=== PATIENT | female | born 1975 | race Caucasian/White ===

== ENCOUNTER → 2016-05-29 | Outpatient (CLI) | payer BC ==
--- NOTE | 2016-05-29 15:28 | US ---
EXAMINATION TYPE: US pelvic complete DATE OF EXAM: 05/29/2016 2:54 PM COMPARISON: NONE CLINICAL HISTORY: R10.2 Pelvic pain,N92.1 Menorrhagia. Pelvic and back pain, heavy vaginal bleeding TECHNIQUE: Transabdominal (TA) Date of LMP: 04/30/2016 EXAM MEASUREMENTS: Uterus: 12.8 x 4.9 x 6.6 cm Endometrial Stripe: 0.9 cm Right Ovary: 2.5 x 1.5 x 2.4 cm Left Ovary: 3.8 x 1.7 x 2.2 cm TECHNOLOGIST IMPRESSION: wnl 1. Uterus: Anteverted Heterogeneous with 1.3 cm Nabothian cyst in cervix, and possible fibroid ant erior body= 2.4 x 1.6 x 2.1 cm 2. Endometrium: wnl 3. Right Ovary: wnl 4. Left Ovary: wnl 5. Bilateral Adnexa: wnl 6. Posterior cul-de-sac: wnl IMPRESSION: 1. NABOTHIAN CYST IN THE POSTERIOR LIP OF THE CERVIX. 2. MILDLY HETEROGENOUS UTERUS.
[2016-05-29 15:53] LABS: Follicle Stimulating Hormone 2.1 mIU/mL; Prolactin 15.9 ng/mL (3.0-18.6)
== END | disposition home or self-care (01) ==
LOC: RADUSWWP 14:31
PROVIDERS: ATTEND Obstetrics & Gynecology
DX: N88.8 Other specified noninflammatory disorders of cervix uteri (principal); R10.2 Pelvic and perineal pain
CPT/HCPCS: 36415; 76856; 83001; 83002; 84146; 84443

== ENCOUNTER → 2016-07-25 | Outpatient (CLI) | payer BC ==
[2016-07-25 16:24] LABS: Basophils % (A) 1 %; CH 31.4; CHCM 33.1; Eosinophils # (A) 0.2 k/uL (0-0.7); Eosinophils % (A) 2 %; HCT 43.1 % (34.0-46.0); HGB 14.3 gm/dL (11.4-16.0); Luc # (Auto) 0.15; Luc % (Auto) 2; Lymphocytes # (A) 2.3 k/uL (1.0-4.8); Lymphocytes % (A) 26 %; MCH 31.5 pg (25.0-35.0); MCHC 33.1 g/dL (31.0-37.0); MCV 95.2 fL (80.0-100.0); Mean Platelet Volume 7.2; Monocytes # (A) 0.5 k/uL (0-1.0); Monocytes % (A) 6 %; Neutrophils # (A) 5.6 k/uL (1.3-7.7); Neutrophils % (A) 64 %; RBC 4.52 m/uL (3.80-5.40); RDW 13.4 % (11.5-15.5); WBC 8.7 k/uL (3.8-10.6); WBC (Perox) 8.65
[2016-07-25 16:56] LABS: Anion Gap 9 mmol/L; Blood Urea Nitrogen 13 mg/dL (7-17); Calcium 9.6 mg/dL (8.4-10.2); Carbon Dioxide 25 mmol/L (22-30); Chloride 106 mmol/L (98-107); Glucose 87 mg/dL (74-99); Non-African American GFR(MDRD) >60 (>60 ml/min/1.73 sqM); Potassium 4.1 mmol/L (3.5-5.1); Sodium 140 mmol/L (137-145)
== END | disposition home or self-care (01) ==
LOC: LABPAT 15:58
PROVIDERS: ATTEND Obstetrics & Gynecology
DX: Z01.812 Encounter for preprocedural laboratory examination (principal)
CPT/HCPCS: 80048; 85025; 86850; 86900; 86901

== ENCOUNTER 2016-07-31 05:48 | Observation (INO) | payer BC ==
[2016-07-28 11:29] VITALS: BMI 36.2
[~2016-07-31 05:48] MED LIST: DEXAMETHASONE SOD PHOSPHATE 10 MG/ML 1 ML VIAL IV ONE; MIDAZOLAM 2 MG/2 ML VIAL IV PRN; ONDANSETRON 4 MG/2 ML VIAL IVP ONE; ceFAZolin 2 GM in SODIUM CHLORIDE 0.9% 100 ML IVPB ONE
[2016-07-31] MEDS ORDERED: SCOPOLAMINE 1.5MG/72HR PATCH TRANSDERM ONE (07:00)
[2016-07-31] MEDS ORDERED: LIDOCAINE 1% 20 ML VIAL (10MG/ML) FOR IV START INTRADERMA ONE ×2 (07:00)
[2016-07-31] MEDS: LACTATED RINGERS 1,000 ML IV SCH ×3 (07:00→18:13)
--- NOTE | 2016-07-31 07:34 | P.HPOB ---
History of Present Illness H&P Date: 07/31/16 Chief Complaint: Menorrhagia and fibroid uterus Betty is a 41-year-old female with a grossly enlarged 13 cm uterus. She reports having very heavy vaginal bleeding for up to 7 days a cycle but for the first 3-4 days she seems to be able to not get in and out of bed due to the heaviness of the bleeding and severe pain. She cannot function at this time she requesting permanent treatment. S uterus. 12 cm it is unlikely NovaSure wouldn't work therefore she is scheduled for a robotic-assisted left laparoscopic hysterectomy. NADINE possible BSO. Risks/benefits/alternatives reviewed with patient in detail and all questions were answered for her prior to proceeding to the operating room risks benefits to include but were not limited to damage to bladder, bowel, vascular injuries, nerve injury, ureteral damage. On physical exam vital signs are stable and afebrile. Heart regular, lungs clear, extremities without pain. This is in obese female whose HEENT is otherwise unremarkable as well. Pelvic exam is somewhat limited due to size but a grossly instructed large uterus is palpated. Past Medical History Past Medical History: Musculoskeletal Disorder Additional Past Medical History / Comment(s): ENVIRONMENTAL ALLERGIES, RLS, DDD WITH LOWER BACK & NECK PAIN., STATES PAIN ALSO LEFT HIP.,MENORRHAGIA., CARPAL TUNNEL SYNDROME LEFT WRIST. History of Any Multi-Drug Resistant Organisms: None Reported Past Surgical History: Orthopedic Surgery, Tubal Ligation Additional Past Surgical History / Comment(s): right arm Past Anesthesia/Blood Transfusion Reactions: Motion Sickness, Postoperative Nausea & Vomiting (PONV) Past Psychological History: ADD/ADHD, Anxiety, Depression Smoking Status: Never smoker Past Alcohol Use History: Occasional Past Drug Use History: None Reported - Past Family History Mother Family Medical History: Cancer Additional Family Medical History / Comment(s): LUNG CANCER Father Family Medical History: Cancer Medications and Allergies Home Medications Medication Instructions Recorded Confirmed Type Dextroamphetamine/Amphetamine 30 mg PO BID 05/30/14 07/28/16 History [Adderall] HYDROcodone/APAP 10-325MG [[place] 1 tab PO Q8HR PRN 03/05/15 07/28/16 History 10-325] ALPRAZolam [Xanax] 0.5 mg PO BID PRN 07/28/16 07/28/16 History Budesonide-Formot 160-4.5 Mcg 2 puff INHALATION BID 07/28/16 07/28/16 History [Symbicort 160-4.5 Mcg Inhaler] rOPINIRole HCL [Requip] 1 mg PO HS PRN 07/28/16 07/28/16 History Allergies Allergy/AdvReac Type Severity Reaction Status Date / Time shellfish derived AdvReac Swelling Verified 07/31/16 06:16 Exam Osteopathic Statement: *. No significant issues noted on an osteopathic structural exam other than those noted in the History and Physical/Consult. - Vital Signs Vital signs: Vital Signs Temp Pulse Resp BP Pulse Ox 07/31/16 07:00 98.5 F 76 16 135/78 96 - OBG Physical Exam Breast: both: normal (no masses) Abdomen: bowel sounds normal, no diffuse tenderness, no bruit present, no guarding noted, no hepatomegaly, no splenomegaly, no mass Vulva: both: normal Vagina: normal moisture, no discharge Cervix: no lesion, no discharge Uterus: enlarged, nodular Adnexa: both: normal
[2016-07-31] MEDS ORDERED: HYDROmorphone (PF) 1 MG/ML ONE (07:36)
[2016-07-31] MEDS ORDERED: fentaNYL (PF) 50 MCG/ML 2 ML AMP ONE (07:36)
[2016-07-31] MEDS ORDERED: ROCURONIUM BROMIDE 10 MG/ML 10 ML VIAL IV ONE (07:36)
[2016-07-31] MEDS ORDERED: PROPOFOL 10 MG/ML 20 ML VIAL IV ONE (07:36)
[2016-07-31] MEDS ORDERED: SUCCINYLCHOLINE CHLORIDE 100 MG/5 ML SYR IV ONE (07:36)
[2016-07-31] MEDS ORDERED: MIDAZOLAM 2 MG/2 ML VIAL ONE (07:36)
[2016-07-31] MEDS ORDERED: LIDOCAINE 1% INJ 10MG/ML (20 ML MDV) ONE (07:36)
[2016-07-31] MEDS ORDERED: BUPIVACAINE (PF) 0.25% 30 ML VIAL SQ ONE ×2 (08:20)
[2016-07-31] MEDS ORDERED: SIMETHICONE 80 MG CHEWABLE PO PRN (09:48)
[2016-07-31] MEDS ORDERED: diphenhydrAMINE 50 MG/ML 1 ML VIAL IVP PRN (09:48)
[2016-07-31] MEDS ORDERED: Acetaminophen-Codeine 300-30mg TAB PO PRN ×2 (09:48)
[2016-07-31] MEDS ORDERED: ONDANSETRON 4 MG/2 ML VIAL IVP PRN (09:48)
--- NOTE | 2016-07-31 10:01 | P.OP ---
Date of Procedure: 07/31/16 Preoperative Diagnosis: menorrhagia: fibroid uterus Postoperative Diagnosis: same with adhesions Procedure(s) Performed: Robotic-assisted laparoscopic hysterectomy with bilateral salpingectomy with lysis of adhesions Anesthesia: CRISTAL Surgeon: Rainer Reynoso [employer] Stitcher #1: Lisandra Rao Estimated Blood Loss (ml): 300 IV fluids (ml): 1,200 Urine output (ml): 75 Pathology: other (Risks with bilateral fallopian tubes) Condition: stable Disposition: floor Operative Findings: Adhesions of the bowel to the posterior cul-de-sac otherwise grossly enlarged fibroid uterus Description of Procedure: Patient was taken to the operating suite where a general anesthetic was found be adequate. She was prepped and draped in the normal sterile fashion and placed in the dorsal lithotomy position. Initially a weighted speculum was inserted into the vagina and the anterior lip of cervix was identified and grasped with a single-tooth tenaculum. Cervix was then dilated and sounded to 12 cm and the cup size was measured to 3 cm. Suture was placed at 3 and 9 hands clock position and the Harriet manipulator was inserted. Cross catheter was then placed and gloves were changed. Attention was then turned to the abdominal portion procedure where approximately 2 mL of quarter percent Marcaine were injected approximate 3 cm above the umbilicus. Through this injected anesthetic a 5 mm skin incision was made and through this incision under direct visualization with an optical trocar and sleeve the camera was inserted. Once peritoneal placement was assured gas was allowed to fully insufflate the abdomen and the patient was placed in a very steep Trendelenburg position. Once this was accomplished, 8 mm skin incisions were made 10 cm lateral to the umbilicus bilaterally and through these da Carmel ports and sleeves were inserted. A fourth port and sleeve was then inserted between the left lateral and the medial port 31 cm incision. Once all ports were placed the initial camera port was exchanged for a da Carmel port and the laparoscopic equipment was removed from the operative field. Robot was then brought in and docked in once docked using a scissor and the one arm and a [place] grasper in the 2 arm I did break scrub and go to the console. Uterus was then elevated and tipped to the right-hand side, cautery of the utero-ovarian ligament was then performed cauterizing it and then cutting it through the broad ligament tissues the tissue was cauterized and cut all the way to the round ligament. Round blade was then cauterized and cut transected and anterior posterior leafs of the broad ligament were developed. Skeletonization vascular moving inferiorly along the lateral border of the uterus was then done. Once to the level of the bladder flap tissue was undermined with [place] and incised with the scissors. This opening was then extended across the face of the uterus with the bladder could be dissected out of the operative field. Once this was accomplished right side of the uterus was developed in a similar fashion. During this process it was noted during anteversion that there was adhesions that were filmy between the bowel and the posterior cul-de-sac and posterior uterine wall these were lysed bluntly and sharply to allow full exposure of the posterior cul-de-sac. Once all this was completed uterus was retroverted cup was identified through the vagina and tissue was incised creating an anterior colpotomy. Once completed following the cup around in a counterclockwise fashion cheating ahead by cauterizing vascularity and needed. This was done to help maintain hemostasis. We did then follow the couple all the way around 3 and 60 once uterus and cervix were from the vaginal mucosa the uterus was brought into the vagina to maintain pneumoperitoneum area pelvis was then irrigated and any small bleeders on the vaginal cuff were cauterized. Instruments were then exchanged for a Alcon grasper and a make suture cut. Cuff was then closed in running fashion with 20 the lock suture. Once closed uterus was brought out of the vagina and pneumoperitoneum was noted to be maintained. One pull inspection of the pelvis at this point seeing no bleeding the right fallopian tube did have what appeared to be endometriosis on it and some discoloration therefore it was elevated incidents were again exchanged for [place] grasper and scissor and cauterizing across the tube tube was excised in a similar fashion the left tube was excised. This tissue was then sent to pathology for evaluation. Once all this was a constant accomplished all of the instruments were removed from the abdomen and gas was allowed to expel from the abdomen. 5 deep breaths were provided during this process. 4-0 Vicryl was then used to close these incisions subcuticularly. Concurrently I did do a cystoscopy and good flow was noted from both ureteral jets. It was noted there was a significant amount of debris within the latter suspicious for UTI. Therefore we will have her take antibiotics over the next several days. Sponge , lap, needle counts were then all correct 2 and patient was taken to the recovery room in stable and satisfactory condition.
[2016-07-31] MEDS: HYDROmorphone 1 MG/ML 1 ML SYRINGE IVP PRN ×4 (10:30→11:04)
[2016-07-31] MEDS ORDERED: ONDANSETRON 4 MG/2 ML VIAL IVP ONE (10:35)
[2016-07-31] MEDS ORDERED: KETOROLAC 30 MG/ML 1 ML VIAL IVP ONE (10:35)
[2016-07-31] MEDS ORDERED: HYDROcodone/APAP 10-325MG 1 EACH TAB PO PRN (12:46)
[2016-07-31] MEDS ORDERED: HYDROmorphone 1 MG/ML 1 ML SYRINGE IVP STA (12:50)
[2016-07-31] MEDS: KETOROLAC 30 MG/ML 1 ML VIAL IVP PRN ×2 (15:58→22:16)
[2016-07-31] MEDS: ALPRAZolam 0.5 MG TAB PO PRN ×2 (16:35→22:18)
[2016-07-31] MEDS: CEPHALEXIN 500 MG CAP PO SCH ×2 (16:35→21:05)
[2016-07-31] MEDS: HYDROcodone/APAP 10-325MG 1 EACH TAB PO PRN ×2 (18:25→22:18)
[2016-07-31] MEDS: SENNOSIDES-DOCUSATE SODIUM 1 EACH TAB PO SCH (21:05)
[2016-08-01] MEDS: CEPHALEXIN 500 MG CAP PO SCH ×5 (02:18→21:34)
[2016-08-01] MEDS: HYDROcodone/APAP 10-325MG 1 EACH TAB PO PRN ×5 (02:18→21:55)
[2016-08-01] MEDS: LACTATED RINGERS 1,000 ML IV SCH ×2 (02:31→22:48)
[2016-08-01 06:46] LABS: Basophils % (A) 0 %; CH 32.1; Eosinophils # (A) 0.1 k/uL (0-0.7); Eosinophils % (A) 1 %; HCT 31.2 % (34.0-46.0); HGB 10.8 gm/dL (11.4-16.0); Luc # (Auto) 0.19; Luc % (Auto) 2; Lymphocytes # (A) 1.9 k/uL (1.0-4.8); Lymphocytes % (A) 21 %; MCH 32.8 pg (25.0-35.0); MCHC 34.7 g/dL (31.0-37.0); MCV 94.6 fL (80.0-100.0); Monocytes # (A) 0.6 k/uL (0-1.0); Monocytes % (A) 6 %; Neutrophils # (A) 6.6 k/uL (1.3-7.7); Neutrophils % (A) 71 %; RDW 13.5 % (11.5-15.5); WBC 9.3 k/uL (3.8-10.6); WBC (Perox) 9.99
[2016-08-01] MEDS: SENNOSIDES-DOCUSATE SODIUM 1 EACH TAB PO SCH ×2 (07:50→21:34)
[2016-08-01] MEDS: KETOROLAC 30 MG/ML 1 ML VIAL IVP PRN ×2 (09:19→17:23)
[2016-08-01] MEDS: ALPRAZolam 0.5 MG TAB PO PRN ×2 (09:34→21:58)
--- NOTE | 2016-08-01 16:16 | P.PN ---
Progress Note - Text Betty is seen and evaluated. I've seen her on 2 separate occasions today plus discussed her care with nursing this morning. She is able to ambulate and she is tolerating her diet. However she is not passing flatus and reports that her pain is still relatively significant. In evaluating her bedside however she does not appear to be into much pain. She is laying comfortably in bed. That said she is unable to get her Tri-flow a past about 500 and with her size and condition I'm concerned that she is at risk for pneumonia or DVT will therefore be more aggressive tonight and tomorrow and try and get her home tomorrow. All the questions are answered for her at this time. Vital signs are stable and she is afebrile. Heart regular, lungs clear, extremities without pain. Abdomen is soft incisions are intact there is mild distention secondary to gas in her abdomen. Assessment postop day 1. Plan continue current care with expectation for discharge in the morning.
[2016-08-02] MEDS: KETOROLAC 30 MG/ML 1 ML VIAL IVP PRN ×2 (00:01→07:59)
[2016-08-02] MEDS: HYDROcodone/APAP 10-325MG 1 EACH TAB PO PRN ×3 (02:18→10:56)
[2016-08-02 07:54] VITALS: BP 98/62; PULSE 64; RESP 19; TEMP 97.9
[2016-08-02] MEDS: SENNOSIDES-DOCUSATE SODIUM 1 EACH TAB PO SCH (07:55)
[2016-08-02] MEDS: CEPHALEXIN 500 MG CAP PO SCH (07:56)
[2016-08-02] MEDS: ALPRAZolam 0.5 MG TAB PO PRN (09:34)
--- NOTE | 2016-08-02 10:37 | P.DS ---
Providers Date of admission: 08/01/16 01:24 Expected date of discharge: 08/02/16 Attending physician: Rainer Reynoso Primary care physician: Stated None Hospital Course: Overall height is doing well. She is ambulating, voiding and she is tolerating her diet. She voices complaining of some pain but otherwise is doing well. She is encouraged to ambulate more as it seems that she has not been very motivated yet to ambulate. She also has not been motivated to do her Tri-flow as much as we would like. I reiterated as has nursing also reiterated that she needs to ambulate every hour all she's awake making sure that she gets up and moves around to keep her from having risk of DVT. She is also reminded that she needs to use her Tri-flow every hour while she is awake trying her best to get as high of number versus possible as we do not want her to be at risk for pneumonia. Otherwise she is stable at this time and will plan discharged home today. Prescriptions for pain relievers have been provided. She is aware to have no heavy lifting limited stairs and driving as well as pelvic rest. If she has any high temperatures, heavy bleeding, or severe pain she will notify our office or go to the emergency room. All of the questions are answered for her at this time. Her heart is regular, lungs are clear, extremities without pain. And edges her on incisions appeared clean dry and intact. Assessment postop day 2. Plan discharged home follow up with me in 1 week. Patient Condition at Discharge: Good Plan - Discharge Summary New Discharge Prescriptions: HYDROcodone/APAP 10-325MG [[place] 10-325] 1 tab PO Q6H PRN #30 tab PRN Reason: Pain Ibuprofen [Motrin] 600 mg PO Q6HR PRN #30 tab PRN Reason: Pain Discharge Medication List Dextroamphetamine/Amphetamine [Adderall] 30 mg PO BID 05/30/14 [History] HYDROcodone/APAP 10-325MG [[place] 10-325] 1 tab PO Q8HR PRN 03/05/15 [History] ALPRAZolam [Xanax] 0.5 mg PO BID PRN 07/28/16 [History] Budesonide-Formot 160-4.5 Mcg [Symbicort 160-4.5 Mcg Inhaler] 2 puff INHALATION RT-BID 07/28/16 [History] rOPINIRole HCL [Requip] 1 mg PO HS PRN 07/28/16 [History] HYDROcodone/APAP 10-325MG [[place] 10-325] 1 tab PO Q6H PRN #30 tab 08/01/16 [Rx] Ibuprofen [Motrin] 600 mg PO Q6HR PRN #30 tab 08/01/16 [Rx] Follow up Appointment(s)/Referral(s): Rainer Reynoso DO [Doctor of Osteopathic Medicine] - 1 Week Patient Instructions/Handouts: Laparoscopic Hysterectomy (DC), Laparoscopic Hysterectomy (GEN) Activity/Diet/Wound Care/Special Instructions: DISCHARGE HOME TODAY, FOLLOW UP IN ONE WEEK, SOONER IF PROBLEMS OR CONCERNS..IE FEVER, CHILLS, PAIN W/URINATION, REDNESS OR FOUL DRAINAGE FROM INCISION SITES. PAIN NOT CONTROLLED BY MEDICATIONS, INABILITY TO KEEP DOWN FLUIDS/FOODS, SWELLING OR PAIN OF LOWER EXTREMITIES.DAILY SHOWER AND PAT INCISIONS DRY. NO TUB BATHS, SWIMMING POOLS, OR HOT TUBS. NO HEAVY LIFTING, PUSHING, OR PULLING. NOTHING IN VAGINA FOR 8 WEEKS. CONTINUE TO USE INCENTIVE SPIROMETRY AND MOVE AROUND HOUSE W/REST PERIODS.
== END 2016-08-02 11:43 | disposition home or self-care (01) ==
LOC: OR 05:48 → 6PED 09:59 → OR 08-01 01:24
PROVIDERS: ADMIT Obstetrics & Gynecology; ATTEND Obstetrics & Gynecology
DX: D25.1 Intramural leiomyoma of uterus (principal); N92.0 Excessive and frequent menstruation with regular cycle; G25.81 Restless legs syndrome; F32.9 Major depressive disorder, single episode, unspecified; F41.9 Anxiety disorder, unspecified; F90.9 Attention-deficit hyperactivity disorder, unspecified type; J30.1 Allergic rhinitis due to pollen; Z79.51 Long term (current) use of inhaled steroids; Z79.899 Other long term (current) drug therapy; Z91.013 Allergy to seafood
CPT/HCPCS: 58571; 94760; 81025; 88305; 85025; 88307; G0378 ×2; J2250; J1100; J0690; J2405; J2001; J3010; J1885 ×3; J1170; J0330; J2704; 86850; 86900; 86901; 88302; 96374; 96376

== ENCOUNTER 2016-11-04 10:39 | Emergency (ER) | payer BC ==
[2016-11-04] MEDS ORDERED: DEXAMETHASONE 4 MG TAB PO STA (11:26)
[2016-11-04] MEDS ORDERED: IPRATROPIUM-ALBUTEROL 3 ML NEB INHALATION STA (11:26)
--- NOTE | 2016-11-04 11:47 | XR ---
EXAMINATION TYPE: XR chest 2V DATE OF EXAM: 11/04/2016 COMPARISON: Prior chest x-ray 05/30/2014 HISTORY: Rule out pneumonia, cough and congestion TECHNIQUE: Frontal and lateral views of the chest are obtained. FINDINGS: There is no focal air space opacity, pleural effusion, or pneumothorax seen. The cardiac silhouette size is within normal limits. The osseous structures are intact. IMPRESSION: No acute cardiopulmonary process.
[2016-11-04 12:14] LABS: Basophils % (A) 1 %; CH 31.4; CHCM 33.9; Eosinophils # (A) 0.2 k/uL (0-0.7); Eosinophils % (A) 3 %; HCT 42.8 % (34.0-46.0); HDW 2.44; HGB 14.2 gm/dL (11.4-16.0); Luc # (Auto) 0.12; Luc % (Auto) 2; Lymphocytes # (A) 1.1 k/uL (1.0-4.8); Lymphocytes % (A) 21 %; MCH 30.9 pg (25.0-35.0); MCHC 33.3 g/dL (31.0-37.0); Mean Platelet Volume 7.7; Monocytes # (A) 0.4 k/uL (0-1.0); Monocytes % (A) 7 %; Neutrophils # (A) 3.6 k/uL (1.3-7.7); Neutrophils % (A) 67 %; RDW 13.7 % (11.5-15.5); WBC 5.5 k/uL (3.8-10.6); WBC (Perox) 5.27
[2016-11-04 12:23] LABS: Anion Gap 12 mmol/L; Blood Urea Nitrogen 10 mg/dL (7-17); Calcium 9.2 mg/dL (8.4-10.2); Carbon Dioxide 20 mmol/L (22-30); Chloride 106 mmol/L (98-107); Glucose 101 mg/dL (74-99); Non-African American GFR(MDRD) >60 (>60 ml/min/1.73 sqM); Potassium 4.2 mmol/L (3.5-5.1); Sodium 138 mmol/L (137-145)
[2016-11-04 14:18] VITALS: RESP 18
--- NOTE | 2016-11-04 14:56 | ED ---
URI HPI - General Chief Complaint: Upper Respiratory Infection Stated Complaint: URI Time Seen by Provider: 11/04/16 11:03 Source: patient Mode of arrival: ambulatory Limitations: no limitations - History of Present Illness Initial Comments: 1 years old female presents with a cough for the last 4 days denies any fever no chills complaining about pain worse with deep breaths she denies any tobacco use. History of asthma. Takes no neck stiffness no signs of meningitis no chest pain no abdominal pain no frequency urgency dysuria - Related Data Home Medications Medication Instructions Recorded Confirmed Dextroamphetamine/Amphetamine 60 mg PO DAILY 05/30/14 11/04/16 [Adderall] HYDROcodone/APAP 10-325MG [[place] 1 tab PO Q8HR PRN 03/05/15 11/04/16 10-325] ALPRAZolam [Xanax] 0.5 mg PO BID PRN 07/28/16 11/04/16 rOPINIRole HCL [Requip] 1 mg PO HS PRN 07/28/16 11/04/16 Previous Rx's Medication Instructions Recorded Clarithromycin [Biaxin] 500 mg PO Q12HR #20 tablet 11/04/16 Allergies Allergy/AdvReac Type Severity Reaction Status Date / Time shellfish derived AdvReac Swelling Verified 11/04/16 11:21 steri strips AdvReac Rash/Hives Uncoded 11/04/16 10:42 Review of Systems ROS Statement: Those systems with pertinent positive or pertinent negative responses have been documented in the HPI. ROS Other: All systems not noted in ROS Statement are negative. Past Medical History Past Medical History: Musculoskeletal Disorder Additional Past Medical History / Comment(s): ENVIRONMENTAL ALLERGIES, RLS, DDD WITH LOWER BACK & NECK PAIN., STATES PAIN ALSO LEFT HIP.,MENORRHAGIA., CARPAL TUNNEL SYNDROME LEFT WRIST. History of Any Multi-Drug Resistant Organisms: None Reported Past Surgical History: Orthopedic Surgery, Tubal Ligation Additional Past Surgical History / Comment(s): right arm Past Anesthesia/Blood Transfusion Reactions: Motion Sickness, Postoperative Nausea & Vomiting (PONV) Past Psychological History: ADD/ADHD, Anxiety, Depression Smoking Status: Never smoker Past Alcohol Use History: Occasional Past Drug Use History: None Reported - Past Family History Mother Family Medical History: Cancer Additional Family Medical History / Comment(s): LUNG CANCER Father Family Medical History: Cancer General Exam - General Exam Comments Initial Comments: General: The patient is awake and alert, in no distress, and does not appear acutely ill. Skin: Skin is warm and dry and no rashes or lesions are noted. Eye: Pupils are equal, round and reactive to light, extra-ocular movements are intact; there is normal conjunctiva bilaterally. Ears, nose, mouth and throat: There are moist mucous membranes and no oral lesions. Neck: The neck is supple, there is no tenderness or JVD. Cardiovascular: There is a regular rate and rhythm. No murmur, rub or gallop is appreciated. Respiratory: To auscultation bilateral, no wheezing no rhonchi no distress respiratory tilley noticed Gastrointestinal: Soft, non-distended, non-tender abdomen without masses or organomegaly noted. There is no rebound or guarding present. Bowel sounds are unremarkable. Back: There is no tenderness to palpation in the midline. There is no obvious deformity. Musculoskeletal: Normal ROM, no tenderness, There is no pedal edema. There is no calf tenderness or swelling. No cords were appreciated. Neurological: CN II-XII intact, Cranial nerves III through XII are intact. There are no obvious motor or sensory deficits. Coordination appears grossly intact. Speech is normal. Psychiatric: Cooperative, appropriate mood & affect, normal judgment. Limitations: no limitations Course Vital Signs 11/04/16 11/04/16 11/04/16 10:40 11:55 12:00 Temperature 98.7 F Pulse Rate 102 H 90 Respiratory 18 20 Rate Blood Pressure 125/80 O2 Sat by Pulse 98 Oximetry 11/04/16 11/04/16 12:06 12:42 Temperature Pulse Rate 88 90 Respiratory 18 Rate Blood Pressure O2 Sat by Pulse 99 Oximetry She did not complain winded some of some of the workup chest x-ray, d-dimer, CBC , compressive metabolic panel all unremarkable she be gone home with a probable diagnosis of bronchitis on Biaxin 500 mg twice daily for next 10 days Medical Decision Making - Lab Data Result diagrams: 11/04/16 11:59 11/04/16 11:59 Lab Results 11/04/16 11/04/16 11/04/16 Range/Units 11:59 11:59 11:59 WBC 5.5 (3.8-10.6) k/uL RBC 4.60 (3.80-5.40) m/uL Hgb 14.2 (11.4-16.0) gm/dL Hct 42.8 (34.0-46.0) % MCV 93.0 (80.0-100.0) fL MCH 30.9 (25.0-35.0) pg MCHC 33.3 (31.0-37.0) g/dL RDW 13.7 (11.5-15.5) % Plt Count 250 (150-450) k/uL Neutrophils % 67 % Lymphocytes % 21 % Monocytes % 7 % Eosinophils % 3 % Basophils % 1 % Neutrophils # 3.6 (1.3-7.7) k/uL Lymphocytes # 1.1 (1.0-4.8) k/uL Monocytes # 0.4 (0-1.0) k/uL Eosinophils # 0.2 (0-0.7) k/uL Basophils # 0.0 (0-0.2) k/uL D-Dimer 0.43 (<0.60) mg/L FEU Sodium 138 (137-145) mmol/L Potassium 4.2 (3.5-5.1) mmol/L Chloride 106 (98-107) mmol/L Carbon Dioxide 20 L (22-30) mmol/L Anion Gap 12 mmol/L BUN 10 (7-17) mg/dL Creatinine 0.72 (0.52-1.04) mg/dL Est GFR (MDRD) Af Amer >60 (>60 ml/min/1.73 sqM) Est GFR (MDRD) Non-Af >60 (>60 ml/min/1.73 sqM) Glucose 101 H (74-99) mg/dL Calcium 9.2 (8.4-10.2) mg/dL Influenza Type A RNA (Not Detectd) Influenza Type B (PCR) (Not Detectd) Group A Strep Rapid (Negative) 11/04/16 11/04/16 Range/Units 11:59 11:59 WBC (3.8-10.6) k/uL RBC (3.80-5.40) m/uL Hgb (11.4-16.0) gm/dL Hct (34.0-46.0) % MCV (80.0-100.0) fL MCH (25.0-35.0) pg MCHC (31.0-37.0) g/dL RDW (11.5-15.5) % Plt Count (150-450) k/uL Neutrophils % % Lymphocytes % % Monocytes % % Eosinophils % % Basophils % % Neutrophils # (1.3-7.7) k/uL Lymphocytes # (1.0-4.8) k/uL Monocytes # (0-1.0) k/uL Eosinophils # (0-0.7) k/uL Basophils # (0-0.2) k/uL D-Dimer (<0.60) mg/L FEU Sodium (137-145) mmol/L Potassium (3.5-5.1) mmol/L Chloride (98-107) mmol/L Carbon Dioxide (22-30) mmol/L Anion Gap mmol/L BUN (7-17) mg/dL Creatinine (0.52-1.04) mg/dL Est GFR (MDRD) Af Amer (>60 ml/min/1.73 sqM) Est GFR (MDRD) Non-Af (>60 ml/min/1.73 sqM) Glucose (74-99) mg/dL Calcium (8.4-10.2) mg/dL Influenza Type A RNA Not Detected (Not Detectd) Influenza Type B (PCR) Not Detected (Not Detectd) Group A Strep Rapid Negative (Negative) Disposition Clinical Impression: Bronchitis Disposition: HOME SELF-CARE Condition: Good Prescriptions: Clarithromycin [Biaxin] 500 mg PO Q12HR #20 tablet Referrals: Romulo Ge MD [Primary Care Provider] - 1-2 days
[2016-11-04 15:04] VITALS: BP 137/75; PULSE 72; TEMP 98.1
== END 2016-11-04 15:03 | disposition home or self-care (01) ==
LOC: EC 10:39
DX: J40 Bronchitis, not specified as acute or chronic (principal); F90.9 Attention-deficit hyperactivity disorder, unspecified type; Z79.899 Other long term (current) drug therapy; Z91.013 Allergy to seafood; Z91.048 Other nonmedicinal substance allergy status
CPT/HCPCS: 36415; 94640; 85379; 80048; 85025; 87081; 87430; 87502; 71020; 99284; J8540

== ENCOUNTER 2017-06-20 09:32 | Emergency (ER) | payer BC ==
[2017-06-20] MEDS ORDERED: ONDANSETRON 4 MG/2 ML VIAL IVP STA (10:09)
[2017-06-20] MEDS ORDERED: SODIUM CHLORIDE 0.9% 1,000 ML IV STA (10:09)
[2017-06-20] MEDS ORDERED: KETOROLAC 30 MG/ML 1 ML VIAL IVP STA (10:09)
--- NOTE | 2017-06-20 10:16 | ED ---
General Adult HPI - General Chief complaint: Abdominal Pain Stated complaint: LEFT FLANK PAIN Time Seen by Provider: 06/20/17 10:04 Source: patient, RN notes reviewed Mode of arrival: ambulatory Limitations: no limitations - History of Present Illness Initial comments: Patient 42-year-old female who presents emergency room today with a chief complaint of left sided flank pain that started 2 days ago. Patient describes a sharp type pain. States feels some discomfort on the right side both sides are radiated around to the front. Does note feeling nauseous at times. States pain is worse with certain movements. Patient denies any other points symptoms. Patient denies any recent fever, chills, shortness of breath, chest pain, numbness or tingling, dysuria or hematuria, constipation or diarrhea, headaches or visual changes, or any other complaints. - Related Data Home Medications Medication Instructions Recorded Confirmed Dextroamphetamine/Amphetamine 60 mg PO DAILY 05/30/14 06/20/17 [Adderall] HYDROcodone/APAP 10-325MG [[place] 1 tab PO Q8HR PRN 03/05/15 06/20/17 10-325] ALPRAZolam [Xanax] 0.5 mg PO BID PRN 07/28/16 06/20/17 rOPINIRole HCL [Requip] 1 mg PO HS PRN 07/28/16 06/20/17 Previous Rx's Medication Instructions Recorded Cyclobenzaprine [Flexeril] 10 mg PO TID #20 tab 06/20/17 Allergies Allergy/AdvReac Type Severity Reaction Status Date / Time shellfish derived AdvReac Swelling Verified 06/20/17 12:27 steri strips AdvReac Rash/Hives Uncoded 06/20/17 09:34 Review of Systems ROS Statement: Those systems with pertinent positive or pertinent negative responses have been documented in the HPI. ROS Other: All systems not noted in ROS Statement are negative. Past Medical History Past Medical History: Musculoskeletal Disorder Additional Past Medical History / Comment(s): ENVIRONMENTAL ALLERGIES, RLS, DDD WITH LOWER BACK & NECK PAIN., STATES PAIN ALSO LEFT HIP.,MENORRHAGIA., CARPAL TUNNEL SYNDROME LEFT WRIST. History of Any Multi-Drug Resistant Organisms: None Reported Past Surgical History: Orthopedic Surgery, Tubal Ligation Additional Past Surgical History / Comment(s): right arm Past Anesthesia/Blood Transfusion Reactions: Motion Sickness, Postoperative Nausea & Vomiting (PONV) Past Psychological History: ADD/ADHD, Anxiety, Depression Smoking Status: Never smoker Past Alcohol Use History: Occasional Past Drug Use History: None Reported - Past Family History Mother Family Medical History: Cancer Additional Family Medical History / Comment(s): LUNG CANCER Father Family Medical History: Cancer General Exam - General Exam Comments Initial Comments: General: The patient is awake and alert, in no distress, and does not appear acutely ill. Eye: Pupils are equal, round and reactive to light, extra-ocular movements are intact. No nystagmus. There is normal conjunctiva bilaterally. No signs of icterus. Ears, nose, mouth and throat: There are moist mucous membranes and no oral lesions. Neck: The neck is supple, there is no tenderness or JVD. Cardiovascular: There is a regular rate and rhythm. No murmur, rub or gallop is appreciated. Respiratory: Lungs are clear to auscultation, respirations are non-labored, breath sounds are equal. No wheezes, stridor, rales, or rhonchi. Gastrointestinal: Soft, non-distended, tender palpation both right and left lower quadrant. Suprapubic over the bladder. CVA tenderness both on left right sides. There is no rebound or guarding present. Musculoskeletal: Normal ROM, no tenderness. Strength 5/5. Sensation intact. Pulses equal bilaterally 2+. Neurological: A&O x 3. CN II-XII intact, There are no obvious motor or sensory deficits. Coordination appears grossly intact. Speech is normal. Skin: Skin is warm and dry and no rashes or lesions are noted. Psychiatric: Cooperative, appropriate mood & affect, normal judgment. Limitations: no limitations Course Vital Signs 06/20/17 09:34 Temperature 97.3 F L Pulse Rate 65 Respiratory 17 Rate Blood Pressure 132/61 O2 Sat by Pulse 100 Oximetry - Reevaluation(s) Reevaluation #1: 06/20/17 11:11 Patient reexamined at this time states she's had little relief with the Toradol so little nauseous here. Her labs have been reviewed currently unremarkable no elevated white count. Urinalysis is no sign of infection. No blood in the urinalysis. Patient still expresses some discomfort both right and left flank areas. Patient does have ALLERGY to shellfish with anaphylaxis type reaction. Options were discussed about a CT of the abdomen. CT abdomen will be ordered without contrast. Patient states no chance of at she's had a hysterectomy. Medical Decision Making - Medical Decision Making Patient reexamined at this time shows no signs of distress. Her labs been reviewed are unremarkable. Her CT does show pulmonary nodule left lung base. Does show hepatomegaly. Does show degenerative changes in the spine. No other acute abnormalities appreciated. Patient's symptoms. Results were discussed with the patient. Patient is reproduced with certain movements. Was discussed that maybe musculoskeletal. Will be tried with a course of muscle relaxers. Advised that it may make her drowsy. She does have [place] and ibuprofen at home that she can use for pain. Advised faulted family doctor in the next 2 days and who return if any symptoms increase or worsen. - Lab Data Result diagrams: 06/20/17 10:01 06/20/17 10:01 Lab Results 06/20/17 06/20/17 06/20/17 Range/Units 10:01 10:01 10:01 WBC 6.7 (3.8-10.6) k/uL RBC 4.59 (3.80-5.40) m/uL Hgb 14.0 (11.4-16.0) gm/dL Hct 41.9 (34.0-46.0) % MCV 91.3 (80.0-100.0) fL MCH 30.4 (25.0-35.0) pg MCHC 33.3 (31.0-37.0) g/dL RDW 12.7 (11.5-15.5) % Plt Count 296 (150-450) k/uL Neutrophils % 62 % Lymphocytes % 28 % Monocytes % 5 % Eosinophils % 3 % Basophils % 1 % Neutrophils # 4.1 (1.3-7.7) k/uL Lymphocytes # 1.9 (1.0-4.8) k/uL Monocytes # 0.3 (0-1.0) k/uL Eosinophils # 0.2 (0-0.7) k/uL Basophils # 0.0 (0-0.2) k/uL Sodium 140 (137-145) mmol/L Potassium 4.7 (3.5-5.1) mmol/L Chloride 106 (98-107) mmol/L Carbon Dioxide 24 (22-30) mmol/L Anion Gap 10 mmol/L BUN 18 H (7-17) mg/dL Creatinine 0.70 (0.52-1.04) mg/dL Est GFR (CKD-EPI)AfAm >90 (>60 ml/min/1.73 sqM) Est GFR (CKD-EPI)NonAf >90 (>60 ml/min/1.73 sqM) Glucose 109 H (74-99) mg/dL Calcium 9.6 (8.4-10.2) mg/dL Total Bilirubin 0.7 (0.2-1.3) mg/dL AST 28 (14-36) U/L ALT 46 (9-52) U/L Alkaline Phosphatase 73 (38-126) U/L Total Protein 7.4 (6.3-8.2) g/dL Albumin 4.2 (3.5-5.0) g/dL Amylase 49 (30-110) U/L Lipase 83 (23-300) U/L Urine Color Yellow Urine Appearance Cloudy H (Clear) Urine pH 5.5 (5.0-8.0) Ur Specific Wade 1.021 (1.001-1.035) Urine Protein Negative (Negative) Urine Glucose (UA) Negative (Negative) Urine Ketones Negative (Negative) Urine Blood Negative (Negative) Urine Nitrite Negative (Negative) Urine Bilirubin Negative (Negative) Urine Urobilinogen <2.0 (<2.0) mg/dL Ur Leukocyte Esterase Negative (Negative) Urine RBC 1 (0-5) /hpf Urine WBC 1 (0-5) /hpf Ur Squamous Epith Cells 18 H (0-4) /hpf Urine Mucus Rare H (None) /hpf Disposition Clinical Impression: Flank pain, Pulmonary nodule Disposition: HOME SELF-CARE Condition: Stable Additional Instructions: Please follow-up the family doctor about pulmonary nodules discussed. Please follow-up with your family doctor over the next 2 days for symptoms of back and abdominal pain. Please use medication as discussed return here to the emergency room if any symptoms increase or worsen. Prescriptions: Cyclobenzaprine [Flexeril] 10 mg PO TID #20 tab Referrals: Romulo Ge MD [Primary Care Provider] - 1-2 days Time of Disposition: 12:46
--- NOTE | 2017-06-20 10:46 | XR ---
EXAMINATION TYPE: XR KUB , 2 VIEWS DATE OF EXAM ORDERED: 06/20/2017 HISTORY: abdominal pain. COMPARISON: None. FINDINGS: The lung bases are clear. Within the abdomen, the abdominal gas pattern is normal. There is no evidence of obstruction or free air. No unusual calcifications are seen. IMPRESSION: NO ACUTE INTRA-ABDOMINAL ABNORMALITY.
[2017-06-20 10:47] LABS: Basophils % (A) 1 %; Eosinophils # (A) 0.2 k/uL (0-0.7); Eosinophils % (A) 3 %; HCT 41.9 % (34.0-46.0); Lymphocytes # (A) 1.9 k/uL (1.0-4.8); Lymphocytes % (A) 28 %; MCH 30.4 pg (25.0-35.0); MCHC 33.3 g/dL (31.0-37.0); MCV 91.3 fL (80.0-100.0); Mean Platelet Volume 7.3; Monocytes # (A) 0.3 k/uL (0-1.0); Monocytes % (A) 5 %; Neutrophils # (A) 4.1 k/uL (1.3-7.7); Neutrophils % (A) 62 %; Platelet Count 296 k/uL (150-450); RBC 4.59 m/uL (3.80-5.40); RDW 12.7 % (11.5-15.5); WBC 6.7 k/uL (3.8-10.6)
[2017-06-20 10:49] LABS: Appearance,Urine Cloudy (Clear); Bilirubin,Urine Negative (Negative); Blood,Urine Negative (Negative); Color,Urine Yellow; Glucose,Urine (UA) Negative (Negative); Ketones,Urine Negative (Negative); Leukocyte Esterase,Urine Negative (Negative); Mucus,Urine Rare /hpf; Nitrite,Urine Negative (Negative); PH, Urine 5.5 (5.0-8.0); Protein,Urine Negative (Negative); RBC,Urine 1 /hpf (0-5); Specific Gravity,Urine 1.021 (1.001-1.035); Squamous Epithelial Cell,Urine 18 /hpf (0-4); Urobilinogen,Urine <2.0 mg/dL (<2.0); WBC,Urine 1 /hpf (0-5)
[2017-06-20 10:58] LABS: ALT 46 U/L (9-52); AST 28 U/L (14-36); Albumin 4.2 g/dL (3.5-5.0); Alkaline Phosphatase 73 U/L (38-126); Amylase 49 U/L (30-110); Anion Gap 10 mmol/L; Blood Urea Nitrogen 18 mg/dL (7-17); Calcium 9.6 mg/dL (8.4-10.2); Carbon Dioxide 24 mmol/L (22-30); Chloride 106 mmol/L (98-107); Glucose 109 mg/dL (74-99); Lipase 83 U/L (23-300); Potassium 4.7 mmol/L (3.5-5.1); Sodium 140 mmol/L (137-145); Total Bilirubin 0.7 mg/dL (0.2-1.3); Total Protein 7.4 g/dL (6.3-8.2)
--- NOTE | 2017-06-20 12:01 | CT ---
EXAMINATION TYPE: CT abdomen pelvis wo con DATE OF EXAM: 06/20/2017 COMPARISON: NONE HISTORY: Left sided flank and Abdominal pain CT DLP: 915.4 mGycm Automated exposure control for dose reduction was used. FINDINGS: There is a 5.6 mm subpleural, noncalcified nodule at the left lung base, best seen on image 17. Visualized portions of the lungs are otherwise clear. There are bilateral breast prostheses in place. There is no pleural or pericardial fluid. The heart is mildly enlarged. Within the abdomen, the liver is mildly prominent measuring 19 cm. The spleen and gallbladder are nor mal. Both adrenal glands appear normal. The pancreas is unremarkable. There is no evidence of nephrolithiasis or hydronephrosis. I do not see evidence of ureterolithiasis. There are phleboliths within the pelvis. There is no significant retroperitoneal, iliac or inguinal adenopathy. The uterus and ovaries are not visualized. There is a 1.8 x 2.4 cm cystic lesion in the left hemipelv is which may represent a retained ovary or a tubo-ovarian remnant. There is a similar 2.8 x 2.6 cm cy stic structure in the right hemipelvis which also may represent a retained ovary or tubo-ovarian remn ant. The bladder is unremarkable. There is no significant diverticular change and there is no radiographic evidence of diverticulitis. The appendix is normal. Small bowel loops are normal. There is no free fluid and no free air identified. There is mild hypertrophic spondylosis in the lower dorsal spine. IMPRESSION: 1. NO EVIDENCE OF HYDRONEPHROSIS OR NEPHROLITHIASIS. 2. MILD HEPATOMEGALY. 3. SOLITARY PULMONARY NODULE. 4. POSTSURGICAL CHANGE. 5. MILD DEGENERATIVE CHANGE WITHIN THE SPINE.
[2017-06-20] MEDS ORDERED: CYCLOBENZAPRINE 10MG STARTER 3 TAB BTL PO STA (12:44)
[2017-06-20 12:58] VITALS: BP 157/89; PULSE 72; RESP 16; TEMP 97.9
== END 2017-06-20 12:57 | disposition home or self-care (01) ==
LOC: EC 09:32
DX: R10.9 Unspecified abdominal pain (principal); R91.1 Solitary pulmonary nodule; R16.0 Hepatomegaly, not elsewhere classified; M51.9 Unspecified thoracic, thoracolumbar and lumbosacral intervertebral disc disorder; R11.0 Nausea; F90.9 Attention-deficit hyperactivity disorder, unspecified type; Z79.899 Other long term (current) drug therapy; Z91.013 Allergy to seafood; Z91.048 Other nonmedicinal substance allergy status; Z80.1 Family history of malignant neoplasm of trachea, bronchus and lung
CPT/HCPCS: 36415; 80053; 82150; 83690; 85025; 81001; 74018; 74176; 99284; 96374; 96375; 96361; J2405; J1885

== ENCOUNTER → 2017-08-04 | Outpatient (CLI) | payer BC ==
--- NOTE | 2017-08-04 19:21 | CT ---
EXAMINATION TYPE: CT chest w con DATE OF EXAM: 08/04/2017 COMPARISON: NONE HISTORY: Left sided pulmonary nodule. CT DLP: 458.4 mGycm Automated exposure control for dose reduction was used. CONTRAST: CT scan of the chest is performed with IV Contrast, patient injected with 100ml mL of Isovue 300. FINDINGS: LUNGS: 5.5 mm subpleural nodule left lower lobe noncalcified. No additional nodules seen. Follow-up s linda in one year is advised. There is no pleural effusion or pneumothorax seen. The tracheobronchial tree is patent. MEDIASTINUM: There are no greater than 1 cm hilar or mediastinal lymph nodes. No pericardial effusi on is seen. Thoracic aorta is of normal caliber. The heart is not enlarged. UPPER ABDOMEN: Small anterior abdominal wall seroma unchanged from 06/20/2017. OTHER: No additional significant abnormality is seen. Bilateral breast implants noted. IMPRESSION: 1. Solitary Nonspecific noncalcified nodule left lower lobe. Follow-up in one year is advised.
== END | disposition home or self-care (01) ==
LOC: RADCTMAIN 17:55
PROVIDERS: ATTEND Internal Medicine Critical Care Medicine
DX: R91.1 Solitary pulmonary nodule (principal)
CPT/HCPCS: 71260; Q9967

== ENCOUNTER 2017-08-31 11:40 | Emergency (ER) | payer BC ==
[2017-08-31 11:56] VITALS: BP 134/80; PULSE 70; RESP 18; TEMP 97.8
[2017-08-31] MEDS ORDERED: IBUPROFEN 600 MG TAB PO STA (12:34)
--- NOTE | 2017-08-31 12:36 | XR ---
EXAMINATION TYPE: XR tibia fibula LT DATE OF EXAM: 08/31/2017 CLINICAL HISTORY: Left-sided leg pain after being kicked by a horse. TECHNIQUE: Two views of the left leg are obtained. COMPARISON: 10/02/2012 FINDINGS: There is no acute fracture or dislocation seen in the left tibia or fibula. The left knee and ankle joints appear within normal limits. The overlying soft tissue appears unremarkable. Incid ental note is made of an os trigonum and mild degenerative changes of the medial and lateral compartm ents of the left knee. Small Achilles enthesophyte is also seen. IMPRESSION: There is no acute fracture or dislocation seen in the left tibia or fibula.
--- NOTE | 2017-08-31 12:47 | ED ---
General Adult HPI - General Chief complaint: Extremity Injury, Lower Stated complaint: lt calf injury Time Seen by Provider: 08/31/17 12:09 Source: patient, RN notes reviewed Mode of arrival: wheelchair Limitations: no limitations - History of Present Illness Initial comments: 42-year-old female presents to the emergency department for a chief complaint of left lower extremity pain 1 hour. Patient states a horse fell on her leg. Patient denies pain in the foot or ankle or knee. Patient states the pain is all in her calf. Patient did not sustain any other injuries. She did not hit her head or hurt her back or neck. Patient states the calf is tender to touch. Patient states she had no swelling or pain in the calf before this occurred. Patient has no other complaints at this time including shortness of breath, chest pain, abdominal pain, nausea or vomiting, headache, or visual changes. - Related Data Home Medications Medication Instructions Recorded Confirmed Dextroamphetamine/Amphetamine 60 mg PO DAILY 05/30/14 08/31/17 [Adderall] HYDROcodone/APAP 10-325MG [[place] 1 tab PO Q8HR PRN 03/05/15 08/31/17 10-325] ALPRAZolam [Xanax] 0.5 mg PO BID PRN 07/28/16 08/31/17 rOPINIRole HCL [Requip] 1 mg PO HS PRN 07/28/16 08/31/17 Allergies Allergy/AdvReac Type Severity Reaction Status Date / Time shellfish derived AdvReac Swelling Verified 08/31/17 11:52 steri strips AdvReac Rash/Hives Uncoded 08/31/17 11:52 Review of Systems ROS Statement: Those systems with pertinent positive or pertinent negative responses have been documented in the HPI. ROS Other: All systems not noted in ROS Statement are negative. Past Medical History Past Medical History: Musculoskeletal Disorder Additional Past Medical History / Comment(s): ENVIRONMENTAL ALLERGIES, RLS, DDD WITH LOWER BACK & NECK PAIN., STATES PAIN ALSO LEFT HIP.,MENORRHAGIA., CARPAL TUNNEL SYNDROME LEFT WRIST. History of Any Multi-Drug Resistant Organisms: None Reported Past Surgical History: Hysterectomy, Orthopedic Surgery, Tubal Ligation Additional Past Surgical History / Comment(s): right arm Past Anesthesia/Blood Transfusion Reactions: Motion Sickness, Postoperative Nausea & Vomiting (PONV) Past Psychological History: ADD/ADHD, Anxiety, Depression Smoking Status: Never smoker Past Alcohol Use History: Occasional Past Drug Use History: None Reported - Past Family History Mother Family Medical History: Cancer Additional Family Medical History / Comment(s): LUNG CANCER Father Family Medical History: Cancer General Exam Limitations: no limitations General appearance: alert, in no apparent distress Head exam: Present: atraumatic, normocephalic, normal inspection Neck exam: Present: normal inspection. Absent: tenderness, meningismus, lymphadenopathy Respiratory exam: Present: normal lung sounds bilaterally. Absent: respiratory distress, wheezes, rales, rhonchi, stridor Cardiovascular Exam: Present: regular rate, normal rhythm, normal heart sounds. Absent: systolic murmur, diastolic murmur, rubs, gallop, clicks Extremities exam: Present: full ROM (Full range of motion of the left knee, left ankle, and left foot. Patient does have some pain in the calf with full flexion of the left knee.), tenderness (Tenderness to the posterior left calf. No tenderness to the left knee left ankle or left foot. No tenderness along the left tib-fib.), normal capillary refill (Refill less than 2 seconds and pedal pulse 2+ in the left lower extremity.). Absent: joint swelling, calf tenderness (No swelling or ecchymosis noted in the left calf at this time. No increased warmth. ) Back exam: Present: normal inspection. Absent: tenderness Course Vital Signs 08/31/17 11:53 Temperature 97.8 F Pulse Rate 70 Respiratory 18 Rate Blood Pressure 134/80 O2 Sat by Pulse 99 Oximetry Medical Decision Making - Medical Decision Making 42-year-old female presents to the emergency department for a chief complaint of left lower extremity pain. Patient states that a horse fell on her left lower leg about one hour ago. Patient denies pain in the left knee ankle or foot. Patient denies injuring her back neck or head. Patient denies having any pain or swelling in the calf prior to one hour ago when this incident occurred. No history of blood clots. On exam patient has tenderness to the left calf. No tenderness to the tib-fib, knee, ankle or foot. Pedal pulse 2+ and capillary refill less than 2 seconds. Neurovascular intact. Patient has full range of motion of the left knee ankle and foot. Patient does have some pain in the calf with full flexion of the left knee. Patient was given a Motrin and [place] in the emergency department. X-ray of the left tib-fib shows no acute fracture or dislocation in the left tibia or fibula. Patient likely has a contusion of the left calf. She was educated to watch for signs of compartment syndrome such as severe swelling or pain in the left lower extremity or numbness in the left foot. She is also aware to return to the emergency Department if these occur. Patient was educated that at this time an ultrasound is not necessary to rule out blood clot as this just happened one hour ago when she had no symptoms before so it is likely a contusion. However if symptoms worsen over the next week she can return to the emergency department for further workup if necessary. Patient will elevate and ice the calf. Patient has a prescription for [place] but it is at her pharmacy which is closed and she does not have any for home. Patient was given a Tylenol 3 starter pack until she can get to the pharmacy tomorrow. She will also take the Motrin 800s that she has at home. She will follow up with primary care in 1 -2 days. Disposition Clinical Impression: Leg injury Disposition: HOME SELF-CARE Condition: Good Instructions: Leg Pain (ED) Additional Instructions: Please take Motrin for pain. Please take Tylenol 3 if pain is severe. Monitor for severe swelling, numbness in the foot, or severe pain and return if these occur. Return if you notice any other worsening symptoms. Otherwise remember to elevate the area and apply ice to the calf for 20 minutes every couple hours. Follow up with primary care in 1-2 days. Is patient prescribed a controlled substance at d/c from ED?: Yes When asked, does pt state using other controlled substances?: Yes If prescribed controlled substance>3 days was MAPS reviewed?: Prescribed <3 Days If opioid is for acute pain is fill amount 7 days or less?: Yes Referrals: Romulo Ge MD [Primary Care Provider] - 1-2 days Time of Disposition: 13:09
[2017-08-31] MEDS ORDERED: HYDROcodone/APAP 5-325MG 1 EACH TAB PO STA (12:48)
[2017-08-31] MEDS ORDERED: ACET/COD 300 MG/30 MG STARTER PACK 6 TAB BTL PO STA (13:07)
== END 2017-08-31 13:14 | disposition home or self-care (01) ==
LOC: EC 11:40
DX: S89.92XA Unspecified injury of left lower leg, initial encounter (principal); F90.9 Attention-deficit hyperactivity disorder, unspecified type; F41.9 Anxiety disorder, unspecified; F32.9 Major depressive disorder, single episode, unspecified; G25.81 Restless legs syndrome; Z79.899 Other long term (current) drug therapy; Z91.013 Allergy to seafood; Z91.048 Other nonmedicinal substance allergy status; W55.19XA Other contact with horse, initial encounter; Y92.89 Other specified places as the place of occurrence of the external cause
CPT/HCPCS: 99283

== ENCOUNTER 2017-10-27 13:43 | Emergency (ER) | payer BC ==
[2017-10-27 13:57] VITALS: BP 140/95; PULSE 81; RESP 18; TEMP 98.2
--- NOTE | 2017-10-27 14:06 | ED ---
Upper Extremity HPI - General Chief Complaint: Extremity Injury, Upper Stated Complaint: Wrist pain Time Seen by Provider: 10/27/17 13:58 Source: patient, RN notes reviewed Mode of arrival: ambulatory Limitations: no limitations - History of Present Illness Initial Comments: This is a 42-year-old female who presents to the emergency department with chief complaint of left wrist injury. 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 She states that one of the residents refused to move things out of his room so she began to do so herself. She states that the resident became angry and slammed the door. Patient states that her arm was in the door jam and it injured her left wrist. She complains of pain to the middle of her left wrist. Denies snuffbox tenderness. Denies decreased range of motion. Denies any other injuries or trauma. Denies fever or chills, chest pain or shortness of breath, abdominal pain, nausea or vomiting, numbness or tingling. - Related Data Home Medications Medication Instructions Recorded Confirmed Dextroamphetamine/Amphetamine 60 mg PO DAILY 05/30/14 08/31/17 [Adderall] HYDROcodone/APAP 10-325MG [[place] 1 tab PO Q8HR PRN 03/05/15 08/31/17 10-325] ALPRAZolam [Xanax] 0.5 mg PO BID PRN 07/28/16 08/31/17 rOPINIRole HCL [Requip] 1 mg PO HS PRN 07/28/16 08/31/17 Allergies Allergy/AdvReac Type Severity Reaction Status Date / Time bee venom protein (honey bee) Allergy Anaphylaxis Verified 10/27/17 13:57 shellfish derived AdvReac Swelling Verified 10/27/17 13:57 steri strips AdvReac Rash/Hives Uncoded 10/27/17 13:57 Review of Systems ROS Statement: Those systems with pertinent positive or pertinent negative responses have been documented in the HPI. ROS Other: All systems not noted in ROS Statement are negative. Past Medical History Past Medical History: Musculoskeletal Disorder Additional Past Medical History / Comment(s): ENVIRONMENTAL ALLERGIES, RLS, DDD WITH LOWER BACK & NECK PAIN., STATES PAIN ALSO LEFT HIP.,MENORRHAGIA., CARPAL TUNNEL SYNDROME LEFT WRIST. History of Any Multi-Drug Resistant Organisms: None Reported Past Surgical History: Hysterectomy, Orthopedic Surgery, Tubal Ligation Additional Past Surgical History / Comment(s): right arm Past Anesthesia/Blood Transfusion Reactions: Motion Sickness, Postoperative Nausea & Vomiting (PONV) Past Psychological History: ADD/ADHD, Anxiety, Depression Smoking Status: Never smoker Past Alcohol Use History: Occasional Past Drug Use History: None Reported - Past Family History Mother Family Medical History: Cancer Additional Family Medical History / Comment(s): LUNG CANCER Father Family Medical History: Cancer General Exam - General Exam Comments Initial Comments: General: Awake and alert, well-developed; in no apparent distress. HEENT: Head atraumatic, normocephalic. Pupils are equal, round and reactive to light. Extraocular movements intact. Oropharynx moist without erythema or exudate. Neck: Supple. Normal ROM. Cardiovascular: Regular rate and rhythm. No murmurs, rubs or gallops. Chest symmetrical. Respiratory: Lungs clear to auscultation bilaterally. No wheezes, rales or rhonchi. Normal respiratory effort with no use of accessory muscles. Musculoskeletal: Normal range motion of the left wrist and hand. There is tenderness on palpation to the middle of the dorsal aspect of the left wrist. No tenderness to radial or ulnar aspects. No snuffbox tenderness. No significant soft tissue swelling, ecchymosis or erythema noted. No abrasions noted. Sensation is intact. Radial pulses are 2+ equal and palpable bilaterally. Skin: [place], warm and dry without rashes or lesions. Neurological: Alert and oriented x3. CN II-XII grossly intact. Speech is fluent and answers are appropriate. No focal neuro deficits. Psychiatric: Normal mood and affect. No overt signs of depression or anxiety noted. Limitations: no limitations Course Vital Signs 10/27/17 13:54 Temperature 98.2 F Pulse Rate 81 Respiratory 18 Rate Blood Pressure 140/95 O2 Sat by Pulse 98 Oximetry Medical Decision Making - Medical Decision Making This is a 42-year-old female who presents to the emergency department with chief complaint of left wrist injury. Patient states that her arm was caught in a door jam when the door was slammed. There is tenderness at the middle dorsal aspect of the left wrist. No significant soft tissue swelling or ecchymosis noted. Patient does have normal range of motion and is neurovascularly intact. X-ray revealed no acute fractures or dislocations. No snuffbox tenderness. Patient provided with an Jayy bandage. Recommended following up with primary care provider if pain persists in 7-10 days. Patient is in no acute distress and will be discharged home. She is in agreement with plan and voices understanding. All questions answered. - Radiology Data Radiology results: report reviewed, image reviewed X-ray left wrist impression: No definite acute fracture or dislocation symptoms persist, follow-up study in 7-10 days would be suggested. Disposition Clinical Impression: Contusion of left wrist Disposition: HOME SELF-CARE Condition: Good Instructions: Wrist Sprain (ED), Contusion in Adults (ED) Additional Instructions: Please rest, ice and take ibuprofen or Tylenol as needed. Please follow up with primary care provider within 1-2 days. Please follow up with primary care provider if pain persists beyond 7-10 days. Return to emergency department if symptoms should worsen or any concerns arise. Is patient prescribed a controlled substance at d/c from ED?: No Referrals: None,Stated [Primary Care Provider] - 1-2 days Time of Disposition: 14:29
--- NOTE | 2017-10-27 14:20 | XR ---
EXAMINATION TYPE: XR wrist complete LT DATE OF EXAM: 10/27/2017 COMPARISON: NONE HISTORY: Pain TECHNIQUE: Four views submitted. FINDINGS: The osseous structures are intact. The joint spaces are preserved and there is no acute fracture or dislocation. IMPRESSION: 1. No definite acute fracture or dislocation if symptoms persist, follow-up study in 7 to 10 days wo uld be suggested
== END 2017-10-27 14:38 | disposition home or self-care (01) ==
LOC: EC 13:43
DX: S60.212A Contusion of left wrist, initial encounter (principal); F90.9 Attention-deficit hyperactivity disorder, unspecified type; Z79.899 Other long term (current) drug therapy; Z91.013 Allergy to seafood; Z91.018 Allergy to other foods; Z91.048 Other nonmedicinal substance allergy status; W23.0XXA Caught, crushed, jammed, or pinched between moving objects, initial encounter; Y92.89 Other specified places as the place of occurrence of the external cause
CPT/HCPCS: 99283

== ENCOUNTER → 2018-07-09 | Outpatient (CLI) | payer BC ==
--- NOTE | 2018-07-09 13:56 | MR ---
EXAMINATION TYPE: MR knee LT wo con DATE OF EXAM: 07/09/2018 COMPARISON: Plain film 06/28/2017 from outside institution HISTORY: Left knee pain TECHNIQUE: Multiplanar, multisequence imaging of the left knee is performed without IV contrast. FINDINGS: MEDIAL MENISCUS: Anterior and posterior horns are intact without tear. LATERAL MENISCUS: Anterior and posterior horns are intact without tear. CRUCIATE LIGAMENTS: The anterior and posterior cruciate ligaments are intact and unremarkable. COLLATERAL LIGAMENTS: The medial collateral ligament and lateral collateral ligament complex are inta ct and unremarkable. EXTENSOR MECHANISM: Visualized quadriceps and patellar tendons are intact. EFFUSION: No significant suprapatellar joint effusion. POPLITEAL CYST: No popliteal/daniel cyst. 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 OTHER: No additional significant abnormality is appreciated. IMPRESSION: There are osteoarthritic changes.
== END ==
LOC: RADMRIMAIN 10:58
PROVIDERS: ATTEND Orthopaedic Surgery
DX: M17.12 Unilateral primary osteoarthritis, left knee (principal)

== ENCOUNTER → 2018-07-13 | Outpatient (CLI) | payer BC ==
[2018-07-13 15:04] LABS: Basophils % (A) 1 %; Eosinophils # (A) 0.2 k/uL (0-0.7); Eosinophils % (A) 4 %; HCT 43.3 % (34.0-46.0); HGB 14.5 gm/dL (11.4-16.0); Lymphocytes # (A) 1.2 k/uL (1.0-4.8); Lymphocytes % (A) 21 %; MCHC 33.4 g/dL (31.0-37.0); MCV 92.8 fL (80.0-100.0); Monocytes # (A) 0.5 k/uL (0-1.0); Monocytes % (A) 8 %; Neutrophils # (A) 3.6 k/uL (1.3-7.7); Neutrophils % (A) 64 %; Platelet Count 314 k/uL (150-450); RBC 4.67 m/uL (3.80-5.40); RDW 13.5 % (11.5-15.5); WBC 5.7 k/uL (3.8-10.6)
[2018-07-13 18:34] LABS: Erythrocyte Sedimentation Rate 9 mm/hr (0-20)
[2018-07-13 18:48] LABS: Rheumatoid Factor 15 IU/mL (0-15)
[2018-07-13 18:51] LABS: Albumin 4.7 g/dL (3.80-4.90); Albumin/Globulin Ratio 1.62 (1.60-3.17); Calcium 9.8 mg/dL (8.7-10.3); Globulin 2.9 g/dL (1.6-3.3); Magnesium 2.2 mg/dL (1.5-2.4); Potassium 4.5 mmol/L (3.5-5.5); Total Bilirubin 0.6 mg/dL (0.3-1.2); Total Protein 7.6 g/dL (6.2-8.2)
== END | disposition home or self-care (01) ==
LOC: LABWHC1 11:46
PROVIDERS: ATTEND Family Medicine
DX: Z00.00 Encounter for general adult medical examination without abnormal findings (principal); R10.9 Unspecified abdominal pain; M25.50 Pain in unspecified joint; E66.9 Obesity, unspecified; R25.2 Cramp and spasm
CPT/HCPCS: 36415; 80053; 80061; 82607; 83690; 83735; 84443; 85025; 85652; 86038; 86431

== ENCOUNTER → 2018-10-04 | Outpatient (CLI) | payer BC ==
--- NOTE | 2018-10-04 11:19 | CT ---
EXAMINATION TYPE: CT abdomen pelvis w con DATE OF EXAM: 10/04/2018 COMPARISON: 06/20/2017 HISTORY: Epigastric mass, melena CT DLP: 1271.6 mGycm Automated exposure control for dose reduction was used. CONTRAST: CT scan of the abdomen pelvis is performed with IV Contrast, patient injected with 100 mL of Isovue 3 00. FINDINGS- LUNG BASES-there are multiple sub-5 mm nodules within the lung bases to small to characterize.. LIVER/GB- No gross abnormality is appreciated. PANCREAS- No gross abnormality is seen. SPLEEN-splenic granuloma noted. ADRENALS- No gross abnormality is seen. KIDNEYS/BLADDER- no hydronephrosis nephrolithiasis or renal mass. BOWEL- no bowel dilatation. Normal appendix. LYMPH NODES- No greater than 1cm abdominal or pelvic lymph nodes areappreciated. OSSEOUS STRUCTURES-hypertrophic and degenerative changes of the vertebral column.. OTHER- there is a subcutaneous soft tissue mass which appears stable central density likely represen ting a fluid component measuring 1.5 x 6.7 cm . Previous breast surgery noted. IMPRESSION- 1. 1.5 x 6.7 cm subcutaneous soft tissue mass which appears to have a low central density suggestive of a fluid collection. Stable from prior exam. Seroma most likely etiology in the differential diagno sis. Abscess or hematoma not entirely excluded correlate clinically. 2. Bilateral sub-5 mm pulmonary nodules too small to characterize. Six-month follow-up could be obtai misty to confirm stability.
== END | disposition home or self-care (01) ==
LOC: RADCTMAIN 09:00
PROVIDERS: ATTEND Family Medicine
DX: R19.00 Intra-abdominal and pelvic swelling, mass and lump, unspecified site (principal)
CPT/HCPCS: 74177; Q9967

== ENCOUNTER 2019-01-13 20:25 | Emergency (ER) | payer BC ==
[2019-01-13 20:55] VITALS: TEMP 98
--- NOTE | 2019-01-13 21:59 | XR ---
EXAMINATION TYPE: XR chest 2V DATE OF EXAM: 01/13/2019 COMPARISON: 07/29/2017 HISTORY: Difficulty breathing TECHNIQUE: Frontal and lateral views of the chest are obtained. FINDINGS: Heart and mediastinum are normal. Lungs are clear. Diaphragm is normal. Bony thorax appear s normal. IMPRESSION: Normal chest. No change.
[2019-01-13] MEDS ORDERED: KETOROLAC 30 MG/ML 1 ML VIAL IVP STA (22:00)
[2019-01-13 22:33] LABS: Basophils # (A) 0.1 k/uL (0-0.2); Basophils % (A) 1 %; Eosinophils # (A) 0.3 k/uL (0-0.7); Eosinophils % (A) 3 %; HCT 40.3 % (34.0-46.0); Lymphocytes # (A) 2.9 k/uL (1.0-4.8); Lymphocytes % (A) 30 %; MCHC 34.8 g/dL (31.0-37.0); MCV 91.9 fL (80.0-100.0); Mean Platelet Volume 6.1; Monocytes # (A) 0.4 k/uL (0-1.0); Monocytes % (A) 5 %; Neutrophils % (A) 61 %; Platelet Count 313 k/uL (150-450); RBC 4.39 m/uL (3.80-5.40); RDW 12.4 % (11.5-15.5); WBC 9.9 k/uL (3.8-10.6)
[2019-01-13 22:42] LABS: African American GFR (CKD) >90 (>60 ml/min/1.73 sqM); Albumin 4.4 g/dL (3.5-5.0); Anion Gap 12 mmol/L; Calcium 9.1 mg/dL (8.4-10.2); Carbon Dioxide 20 mmol/L (22-30); Chloride 106 mmol/L (98-107); Glucose 108 mg/dL (74-99); Magnesium 1.8 mg/dL (1.6-2.3); Sodium 138 mmol/L (137-145); Total Bilirubin 1.2 mg/dL (0.2-1.3); Total Protein 7.9 g/dL (6.3-8.2)
[2019-01-13 22:44] LABS: Potassium 4.7 mmol/L (3.5-5.1)
[2019-01-13 22:45] LABS: ALT 33 U/L (9-52); AST 44 U/L (14-36); Alkaline Phosphatase 48 U/L (38-126); Blood Urea Nitrogen 14 mg/dL (7-17)
[2019-01-13 22:48] LABS: D-Dimer 0.39 mg/L FEU (<0.60); Partial Thromboplastin Time 25.9 sec (22.0-30.0); Prothrombin Time 10.6 sec (9.0-12.0)
[2019-01-13 23:40] VITALS: BP 136/82; PULSE 72; RESP 19
[2019-01-13 23:49] LABS: Appearance,Urine Cloudy (Clear); Bacteria,Urine Rare /hpf; Bilirubin,Urine Negative (Negative); Blood,Urine Negative (Negative); Color,Urine Yellow; Glucose,Urine (UA) Negative (Negative); Ketones,Urine Negative (Negative); Leukocyte Esterase,Urine Negative (Negative); Mucus,Urine Few /hpf; Nitrite,Urine Negative (Negative); Protein,Urine Negative (Negative); RBC,Urine 2 /hpf (0-5); Specific Gravity,Urine 1.022 (1.001-1.035); Squamous Epithelial Cell,Urine 3 /hpf (0-4); Urobilinogen,Urine <2.0 mg/dL (<2.0); WBC,Urine 1 /hpf (0-5)
[2019-01-13] MEDS ORDERED: ACET/COD 300 MG/30 MG STARTER PACK 6 TAB BTL PO STA (23:55)
--- NOTE | 2019-01-13 23:56 | ED ---
General Adult HPI - General Chief complaint: Upper Respiratory Infection Stated complaint: PAIN WITH BREATHING AND HEAD PAIN Time Seen by Provider: 01/13/19 21:34 Source: patient Mode of arrival: ambulatory Limitations: no limitations - History of Present Illness Initial comments: 43-year-old female patient presents to the emergency department today for evaluation of chest pain and headache. Patient states that she feels like her lungs are hurting. Patient states when she takes a deep breath she has a pain across the right rib area. Patient denies any shortness of breath, cough, or congestion. Denies any sweats, nausea, or vomiting. Denies fever or chills. Patient states she also has a headache. Patient states she has been rather upset today and crying a lot because her told her that he wanted a divorce. She states that her ribs and the pain started prior to this knowledge. She denies any abdominal pain, nausea, or vomiting. Denies any dizziness, numbness, or tingling. Denies blurred or double vision. Patient denies any r ecent rash, diarrhea, constipation, back pain, numbness, tingling, hematuria, dysuria, urinary urgency, urinary frequency, or any other complaints. - Related Data Home Medications Medication Instructions Recorded Confirmed Dextroamphetamine/Amphetamine 60 mg PO DAILY 05/30/14 08/31/17 [Adderall] HYDROcodone/APAP 10-325MG [[place] 1 tab PO Q8HR PRN 03/05/15 08/31/17 10-325] ALPRAZolam [Xanax] 0.5 mg PO BID PRN 07/28/16 08/31/17 rOPINIRole HCL [Requip] 1 mg PO HS PRN 07/28/16 08/31/17 Previous Rx's Medication Instructions Recorded Naproxen [EC-Naprosyn] 500 mg PO BID PRN #30 tablet. 01/13/19 Allergies Allergy/AdvReac Type Severity Reaction Status Date / Time bee venom protein (honey bee) Allergy Anaphylaxis Verified 01/13/19 20:53 shellfish derived AdvReac Swelling Verified 01/13/19 20:53 steri strips AdvReac Rash/Hives Uncoded 01/13/19 20:53 Review of Systems ROS Statement: Those systems with pertinent positive or pertinent negative responses have been documented in the HPI. ROS Other: All systems not noted in ROS Statement are negative. Past Medical History Past Medical History: Musculoskeletal Disorder Additional Past Medical History / Comment(s): ENVIRONMENTAL ALLERGIES, RLS, DDD WITH LOWER BACK & NECK PAIN., STATES PAIN ALSO LEFT HIP.,MENORRHAGIA., CARPAL TUNNEL SYNDROME LEFT WRIST. History of Any Multi-Drug Resistant Organisms: None Reported Past Surgical History: Hysterectomy, Orthopedic Surgery, Tubal Ligation Additional Past Surgical History / Comment(s): right arm Past Anesthesia/Blood Transfusion Reactions: Motion Sickness, Postoperative Nausea & Vomiting (PONV) Past Psychological History: ADD/ADHD, Anxiety, Depression Smoking Status: Never smoker Past Alcohol Use History: Occasional Past Drug Use History: None Reported - Past Family History Mother Family Medical History: Cancer Additional Family Medical History / Comment(s): LUNG CANCER Father Family Medical History: Cancer General Exam Limitations: no limitations General appearance: alert, in no apparent distress, other (Physical well- developed, well-nourished adult female patient in no acute distress. Vital signs upon presentation are temperature 98.0F, pulse 74, respirations 16, blood pressure 136/74, pulse ox 99% on room air.) Eye exam: Present: normal appearance, PERRL, EOMI. Absent: scleral icterus, conjunctival injection, periorbital swelling ENT exam: Present: normal exam, normal oropharynx, mucous membranes moist Respiratory exam: Present: normal lung sounds bilaterally. Absent: respiratory distress, wheezes, rales, rhonchi, stridor, chest wall tenderness Cardiovascular Exam: Present: regular rate, normal rhythm, normal heart sounds. Absent: systolic murmur, diastolic murmur, rubs, gallop, clicks GI/Abdominal exam: Present: soft, normal bowel sounds. Absent: distended, tenderness, guarding, rebound, rigid Neurological exam: Present: alert, oriented X3, CN II-XII intact Psychiatric exam: Present: normal affect, normal mood Skin exam: Present: warm, dry, intact, normal color. Absent: rash Course Vital Signs 01/13/19 01/13/19 20:51 23:39 Temperature 98.0 F Pulse Rate 74 72 Respiratory 16 19 Rate Blood Pressure 136/74 136/82 O2 Sat by Pulse 99 97 Oximetry EKG Findings - EKG Comments: EKG Findings:: EKG obtained at 2217 shows normal sinus rhythm with a ventricular rate of 73, NH interval 168, QRS duration 96, QT 396, QTc 436. No evidence of ST elevation or depression. Medical Decision Making - Medical Decision Making 43-year-old female patient presents to the emergency department for evaluation of bilateral rib pain especially on the right. Physical examination reveals no CVA tenderness. Lungs are clear to auscultation with good air movement. Labs reviewed and are unremarkable. Troponin negative. D-dimer negative. EKG shows normal sinus rhythm with no ST elevation or depression. Chest x-ray shows no acute cardiopulmonary process. Patient was given IV fluids and pain medication in the emergency department. Upon reevaluation she does report improvement of symptoms. She'll be discharged home at this time to follow-up with her primary care physician for recheck in 1-2 days. Return parameters discussed in detail. She verbalizes understanding and agrees with this plan. - Lab Data Result diagrams: 01/13/19 22:24 01/13/19 22:24 Lab Results 01/13/19 01/13/19 01/13/19 Range/Units 22:24 22:24 22:24 WBC 9.9 (3.8-10.6) k/uL RBC 4.39 (3.80-5.40) m/uL Hgb 14.0 (11.4-16.0) gm/dL Hct 40.3 (34.0-46.0) % MCV 91.9 (80.0-100.0) fL MCH 32.0 (25.0-35.0) pg MCHC 34.8 (31.0-37.0) g/dL RDW 12.4 (11.5-15.5) % Plt Count 313 (150-450) k/uL Neutrophils % 61 % Lymphocytes % 30 % Monocytes % 5 % Eosinophils % 3 % Basophils % 1 % Neutrophils # 6.0 (1.3-7.7) k/uL Lymphocytes # 2.9 (1.0-4.8) k/uL Monocytes # 0.4 (0-1.0) k/uL Eosinophils # 0.3 (0-0.7) k/uL Basophils # 0.1 (0-0.2) k/uL PT 10.6 (9.0-12.0) sec INR 1.0 (<1.2) APTT 25.9 (22.0-30.0) sec D-Dimer 0.39 (<0.60) mg/L FEU Sodium 138 (137-145) mmol/L Potassium 4.7 (3.5-5.1) mmol/L Chloride 106 (98-107) mmol/L Carbon Dioxide 20 L (22-30) mmol/L Anion Gap 12 mmol/L BUN 14 (7-17) mg/dL Creatinine 0.68 (0.52-1.04) mg/dL Est GFR (CKD-EPI)AfAm >90 (>60 ml/min/1.73 sqM) Est GFR (CKD-EPI)NonAf >90 (>60 ml/min/1.73 sqM) Glucose 108 H (74-99) mg/dL Calcium 9.1 (8.4-10.2) mg/dL Magnesium 1.8 (1.6-2.3) mg/dL Total Bilirubin 1.2 (0.2-1.3) mg/dL AST 44 H (14-36) U/L ALT 33 (9-52) U/L Alkaline Phosphatase 48 (38-126) U/L Troponin I (0.000-0.034) ng/mL Total Protein 7.9 (6.3-8.2) g/dL Albumin 4.4 (3.5-5.0) g/dL Urine Color Urine Appearance (Clear) Urine pH (5.0-8.0) Ur Specific Rawson (1.001-1.035) Urine Protein (Negative) Urine Glucose (UA) (Negative) Urine Ketones (Negative) Urine Blood (Negative) Urine Nitrite (Negative) Urine Bilirubin (Negative) Urine Urobilinogen (<2.0) mg/dL Ur Leukocyte Esterase (Negative) Urine RBC (0-5) /hpf Urine WBC (0-5) /hpf Ur Squamous Epith Cells (0-4) /hpf Urine Bacteria (None) /hpf Urine Mucus (None) /hpf 01/13/19 01/13/19 Range/Units 22:24 23:37 WBC (3.8-10.6) k/uL RBC (3.80-5.40) m/uL Hgb (11.4-16.0) gm/dL Hct (34.0-46.0) % MCV (80.0-100.0) fL MCH (25.0-35.0) pg MCHC (31.0-37.0) g/dL RDW (11.5-15.5) % Plt Count (150-450) k/uL Neutrophils % % Lymphocytes % % Monocytes % % Eosinophils % % Basophils % % Neutrophils # (1.3-7.7) k/uL Lymphocytes # (1.0-4.8) k/uL Monocytes # (0-1.0) k/uL Eosinophils # (0-0.7) k/uL Basophils # (0-0.2) k/uL PT (9.0-12.0) sec INR (<1.2) APTT (22.0-30.0) sec D-Dimer (<0.60) mg/L FEU Sodium (137-145) mmol/L Potassium (3.5-5.1) mmol/L Chloride (98-107) mmol/L Carbon Dioxide (22-30) mmol/L Anion Gap mmol/L BUN (7-17) mg/dL Creatinine (0.52-1.04) mg/dL Est GFR (CKD-EPI)AfAm (>60 ml/min/1.73 sqM) Est GFR (CKD-EPI)NonAf (>60 ml/min/1.73 sqM) Glucose (74-99) mg/dL Calcium (8.4-10.2) mg/dL Magnesium (1.6-2.3) mg/dL Total Bilirubin (0.2-1.3) mg/dL AST (14-36) U/L ALT (9-52) U/L Alkaline Phosphatase (38-126) U/L Troponin I <0.012 (0.000-0.034) ng/mL Total Protein (6.3-8.2) g/dL Albumin (3.5-5.0) g/dL Urine Color Yellow Urine Appearance Cloudy H (Clear) Urine pH 6.0 (5.0-8.0) Ur Specific [place]son 1.022 (1.001-1.035) Urine Protein Negative (Negative) Urine Glucose (UA) Negative (Negative) Urine Ketones Negative (Negative) Urine Blood Negative (Negative) Urine Nitrite Negative (Negative) Urine Bilirubin Negative (Negative) Urine Urobilinogen <2.0 (<2.0) mg/dL Ur Leukocyte Esterase Negative (Negative) Urine RBC 2 (0-5) /hpf Urine WBC 1 (0-5) /hpf Ur Squamous Epith Cells 3 (0-4) /hpf Urine Bacteria Rare H (None) /hpf Urine Mucus Few H (None) /hpf - Radiology Data Radiology results: report reviewed, image reviewed Two-view x-ray of the chest was obtained. Report was reviewed in its entirety. Impression by Dr. Lew shows normal chest with no change. Disposition Clinical Impression: Chest pain, Headache Disposition: HOME SELF-CARE Condition: Good Instructions (If sedation given, give patient instructions): Chest Pain (ED), Acute Headache (ED) Additional Instructions: Take medication as directed. Follow-up through primary care physician for recheck in 1-2 days. Return to the emergency department immediately for any new, worsening, or concerning symptoms. Prescriptions: Naproxen [EC-Naprosyn] 500 mg PO BID PRN #[address] KUMARI Reason: Pain Is patient prescribed a controlled substance at d/c from ED?: No Referrals: None,Stated [Primary Care Provider] - 1-2 days Time of Disposition: 23:56
== END 2019-01-14 00:24 | disposition home or self-care (01) ==
LOC: EC 20:25
DX: R07.9 Chest pain, unspecified (principal); R51 Headache; R07.81 Pleurodynia; F90.9 Attention-deficit hyperactivity disorder, unspecified type; F41.9 Anxiety disorder, unspecified; F32.9 Major depressive disorder, single episode, unspecified; Z79.899 Other long term (current) drug therapy; Z91.030 Bee allergy status; Z91.048 Other nonmedicinal substance allergy status; Z91.013 Allergy to seafood
CPT/HCPCS: 36415; 93005; 85379; 80053; 83735; 84484; 85025; 85610; 85730; 81001; 71046; 99285; 96374; J1885

== ENCOUNTER 2019-03-03 18:18 | Emergency (ER) | payer BC ==
[2019-03-03 18:26] VITALS: TEMP 98
[2019-03-03] MEDS ORDERED: ONDANSETRON 4 MG/2 ML VIAL IVP STA (18:28)
--- NOTE | 2019-03-03 18:31 | ED ---
General Adult HPI - General Chief complaint: Chest Pain Stated complaint: JORI, CHEST PAIN Time Seen by Provider: 03/03/19 18:27 Source: patient Mode of arrival: wheelchair Limitations: no limitations - History of Present Illness Initial comments: Patient presents the ED complaining of having central chest pain that "shoots down" to her epigastrium, dyspnea and nausea for the past 30 minutes or so. Patient states that her symptoms began while she was involved in a verbal argument with her . Patient denies taking any medication for her sympto ms. Patient denies trauma or injury, fever or chills, headache, focal neuro deficit, neck/arm/jaw pain, pleuritic pain, leg or calf swelling or pain, cough or cold symptoms, palpitations, dizziness, diaphoresis, vomiting/diarrhea, bloody or melanotic stool, dysuria or urinary symptoms, or any other symptoms or complaints. - Related Data Home Medications Medication Instructions Recorded Confirmed HYDROcodone/APAP 10-325MG [[place] 1 tab PO TID PRN 03/05/15 03/03/19 10-325] Albuterol Inhaler [Ventolin Hfa 2 puff INHALATION RT-Q4H PRN 03/03/19 03/03/19 Inhaler] rOPINIRole HCL [Requip] 5 mg PO HS PRN 03/03/19 03/03/19 Allergies Allergy/AdvReac Type Severity Reaction Status Date / Time bee venom protein (honey bee) Allergy Anaphylaxis Verified 03/03/19 20:07 shellfish derived AdvReac Swelling Verified 03/03/19 20:07 steri strips AdvReac Rash/Hives Uncoded 03/03/19 18:24 Review of Systems ROS Statement: Those systems with pertinent positive or pertinent negative responses have been documented in the HPI. ROS Other: All systems not noted in ROS Statement are negative. Past Medical History Past Medical History: Musculoskeletal Disorder Additional Past Medical History / Comment(s): ENVIRONMENTAL ALLERGIES, RLS, DDD WITH LOWER BACK & NECK PAIN., STATES PAIN ALSO LEFT HIP.,MENORRHAGIA., CARPAL TUNNEL SYNDROME LEFT WRIST. History of Any Multi-Drug Resistant Organisms: None Reported Past Surgical History: Hysterectomy, Orthopedic Surgery, Tubal Ligation Additional Past Surgical History / Comment(s): right arm Past Anesthesia/Blood Transfusion Reactions: Motion Sickness, Postoperative Nausea & Vomiting (PONV) Past Psychological History: ADD/ADHD, Anxiety, Depression Smoking Status: Never smoker Past Alcohol Use History: Occasional Past Drug Use History: None Reported - Past Family History Mother Family Medical History: Cancer Additional Family Medical History / Comment(s): LUNG CANCER Father Family Medical History: Cancer General Exam Limitations: no limitations General appearance: alert Head exam: Present: atraumatic, normocephalic Eye exam: Present: normal appearance, PERRL, EOMI ENT exam: Present: mucous membranes moist Neck exam: Present: other (Trachea is midline) Respiratory exam: Present: normal lung sounds bilaterally. Absent: respiratory distress, wheezes, rales, rhonchi, chest wall tenderness Cardiovascular Exam: Present: regular rate, normal rhythm, normal heart sounds, other (Normal radial pulses bilaterally) GI/Abdominal exam: Present: soft, normal bowel sounds, other (Mild epigastric tenderness). Absent: distended, guarding, rebound Extremities exam: Absent: tenderness, pedal edema, calf tenderness Neurological exam: Present: alert, oriented X3. Absent: motor sensory deficit Psychiatric exam: Present: anxious, other (Patient is tearful) Skin exam: Present: warm, dry, intact, normal color Course Vital Signs 03/03/19 18:24 Temperature 98.0 F Pulse Rate 100 Respiratory 20 Rate Blood Pressure 158/94 O2 Sat by Pulse 100 Oximetry - Reevaluation(s) Reevaluation #1: 03/03/19 21:12 Patient states that her symptoms have now improved, and she denies development of any new pain or symptoms while in the ED. Patient remains alert and breathing comfortably with a normal room air oxygen saturation. Patient's abdomen remains soft and without any surgical signs on exam. Patient is aware of her test results, and she feels going home at this time. She was counseled about chest pain and epigastric pain, and she was clearly explained return and follow-up instructions. 03/03/19 21:18 EKG Findings - EKG Comments: EKG Findings:: Normal sinus rhythm, no ectopy, ventricular rate of 85 bpm, normal [place] and QRS intervals, normal QT interval, voltage criteria for LVH, normal axis, no ST or T-wave abnormality Medical Decision Making - Medical Decision Making Patient's EKG and chest x-ray are fairly unremarkable. Patient's d-dimer is negative. Patient has had 2 negative troponins (drawn about 1.5 hours apart) while in the ED. Patient reports that her symptoms began after having an argument with her , and she was quite anxious in appearance on her arrival to the ED. I suspect that her symptoms may be secondary to anxiety, and I do not think that they are from a cardiac or emergent medical condition. Will discharge patient home at this time with instructions to follow up closely with her primary care provider. Patient feels comfortable with this plan. - Lab Data Result diagrams: 03/03/19 18:50 03/03/19 19:24 Lab Results 03/03/19 03/03/19 03/03/19 Range/Units 18:50 18:50 18:50 WBC 9.3 (3.8-10.6) k/uL RBC 5.02 (3.80-5.40) m/uL Hgb 15.8 (11.4-16.0) gm/dL Hct 47.3 H (34.0-46.0) % MCV 94.3 (80.0-100.0) fL MCH 31.4 (25.0-35.0) pg MCHC 33.3 (31.0-37.0) g/dL RDW 12.4 (11.5-15.5) % Plt Count 361 (150-450) k/uL Neutrophils % 70 % Lymphocytes % 20 % Monocytes % 5 % Eosinophils % 2 % Basophils % 0 % Neutrophils # 6.5 (1.3-7.7) k/uL Lymphocytes # 1.9 (1.0-4.8) k/uL Monocytes # 0.5 (0-1.0) k/uL Eosinophils # 0.2 (0-0.7) k/uL Basophils # 0.0 (0-0.2) k/uL PT 10.0 (9.0-12.0) sec INR 0.9 (<1.2) APTT 26.2 (22.0-30.0) sec D-Dimer 0.43 (<0.60) mg/L FEU Sodium (137-145) mmol/L Potassium (3.5-5.1) mmol/L Chloride (98-107) mmol/L Carbon Dioxide (22-30) mmol/L Anion Gap mmol/L BUN (7-17) mg/dL Creatinine (0.52-1.04) mg/dL Est GFR (CKD-EPI)AfAm (>60 ml/min/1.73 sqM) Est GFR (CKD-EPI)NonAf (>60 ml/min/1.73 sqM) Glucose (74-99) mg/dL Calcium (8.4-10.2) mg/dL Magnesium (1.6-2.3) mg/dL Total Bilirubin (0.2-1.3) mg/dL AST (14-36) U/L ALT (9-52) U/L Alkaline Phosphatase (38-126) U/L Troponin I (0.000-0.034) ng/mL NT-Pro-B Natriuret Pep 25 pg/mL Total Protein (6.3-8.2) g/dL Albumin (3.5-5.0) g/dL Lipase (23-300) U/L 03/03/19 03/03/19 03/03/19 Range/Units 18:50 19:24 20:24 WBC (3.8-10.6) k/uL RBC (3.80-5.40) m/uL Hgb (11.4-16.0) gm/dL Hct (34.0-46.0) % MCV (80.0-100.0) fL MCH (25.0-35.0) pg MCHC (31.0-37.0) g/dL RDW (11.5-15.5) % Plt Count (150-450) k/uL Neutrophils % % Lymphocytes % % Monocytes % % Eosinophils % % Basophils % % Neutrophils # (1.3-7.7) k/uL Lymphocytes # (1.0-4.8) k/uL Monocytes # (0-1.0) k/uL Eosinophils # (0-0.7) k/uL Basophils # (0-0.2) k/uL PT (9.0-12.0) sec INR (<1.2) APTT (22.0-30.0) sec D-Dimer (<0.60) mg/L FEU Sodium 139 (137-145) mmol/L Potassium 4.2 (3.5-5.1) mmol/L Chloride 107 (98-107) mmol/L Carbon Dioxide 24 (22-30) mmol/L Anion Gap 8 mmol/L BUN 14 (7-17) mg/dL Creatinine 0.90 (0.52-1.04) mg/dL Est GFR (CKD-EPI)AfAm >90 (>60 ml/min/1.73 sqM) Est GFR (CKD-EPI)NonAf 78 (>60 ml/min/1.73 sqM) Glucose 129 H (74-99) mg/dL Calcium 9.5 (8.4-10.2) mg/dL Magnesium 2.0 (1.6-2.3) mg/dL Total Bilirubin 0.4 (0.2-1.3) mg/dL AST 27 (14-36) U/L ALT 30 (9-52) U/L Alkaline Phosphatase 79 (38-126) U/L Troponin I <0.012 <0.012 (0.000-0.034) ng/mL NT-Pro-B Natriuret Pep pg/mL Total Protein 7.4 (6.3-8.2) g/dL Albumin 4.3 (3.5-5.0) g/dL Lipase 108 (23-300) U/L - Radiology Data Radiology results: image reviewed (Chest x-ray is negative) Disposition Clinical Impression: Chest pain, Epigastric pain Disposition: HOME SELF-CARE Condition: Stable Instructions (If sedation given, give patient instructions): Chest Pain (ED), Abdominal Pain (ED) Additional Instructions: Return to the ER immediately should you develop new or worsening pain, increased shortness of breath, a fever, vomiting, feeling dizzy or faint, or near worsen ing symptoms. Follow up closely with your primary care provider. Is patient prescribed a controlled substance at d/c from ED?: No Referrals: Feliberto Kapadia [Primary Care Provider] - 1-2 days Time of Disposition: 21:08
[2019-03-03 19:03] LABS: Basophils % (A) 0 %; Eosinophils # (A) 0.2 k/uL (0-0.7); Eosinophils % (A) 2 %; HCT 47.3 % (34.0-46.0); HGB 15.8 gm/dL (11.4-16.0); Lymphocytes # (A) 1.9 k/uL (1.0-4.8); Lymphocytes % (A) 20 %; MCH 31.4 pg (25.0-35.0); MCHC 33.3 g/dL (31.0-37.0); MCV 94.3 fL (80.0-100.0); Mean Platelet Volume 6.9; Monocytes # (A) 0.5 k/uL (0-1.0); Monocytes % (A) 5 %; Neutrophils # (A) 6.5 k/uL (1.3-7.7); Neutrophils % (A) 70 %; Platelet Count 361 k/uL (150-450); RBC 5.02 m/uL (3.80-5.40); RDW 12.4 % (11.5-15.5); WBC 9.3 k/uL (3.8-10.6)
[2019-03-03] MEDS ORDERED: LORazepam 2 MG/ML INJ IV STA (19:05)
[2019-03-03 19:28] LABS: D-Dimer 0.43 mg/L FEU (<0.60); INR 0.9 (<1.2); Partial Thromboplastin Time 26.2 sec (22.0-30.0)
--- NOTE | 2019-03-03 19:54 | XR ---
EXAMINATION TYPE: XR chest 2V DATE OF EXAM: 03/03/2019 COMPARISON: 01/13/2019 HISTORY: Chest pain TECHNIQUE: Frontal and lateral views of the chest are obtained. FINDINGS: Heart and mediastinum are normal. Lungs are clear. Diaphragm is normal. Bony thorax appear s normal. There are chest leads. IMPRESSION: Normal chest. No change.
[2019-03-03 19:56] LABS: Potassium 4.2 mmol/L (3.5-5.1)
[2019-03-03 19:57] LABS: ALT 30 U/L (9-52); AST 27 U/L (14-36); African American GFR (CKD) >90 (>60 ml/min/1.73 sqM); Albumin 4.3 g/dL (3.5-5.0); Alkaline Phosphatase 79 U/L (38-126); Anion Gap 8 mmol/L; Blood Urea Nitrogen 14 mg/dL (7-17); Calcium 9.5 mg/dL (8.4-10.2); Carbon Dioxide 24 mmol/L (22-30); Chloride 107 mmol/L (98-107); Glucose 129 mg/dL (74-99); Non-African American GFR(CKD) 78 (>60 ml/min/1.73 sqM); Sodium 139 mmol/L (137-145); Total Bilirubin 0.4 mg/dL (0.2-1.3); Total Protein 7.4 g/dL (6.3-8.2)
[2019-03-03] MEDS ORDERED: KETOROLAC 30 MG/ML 1 ML VIAL IVP STA (20:01)
[2019-03-03] MEDS ORDERED: MAG HYDROX/AL HYDROX/SIMETH 30 ML, HYOSCYAMINE ELIXIR 10 ML, LIDOCAINE VISCOUS 2% 10 ML PO STA ×3 (20:26)
[2019-03-03 21:39] VITALS: BP 136/86; PULSE 92; RESP 18
== END 2019-03-03 21:40 | disposition home or self-care (01) ==
LOC: EC 18:18
DX: R07.9 Chest pain, unspecified (principal); R10.13 Epigastric pain; R06.00 Dyspnea, unspecified; R11.0 Nausea; Z91.030 Bee allergy status; Z91.013 Allergy to seafood; Z91.048 Other nonmedicinal substance allergy status
CPT/HCPCS: 36415; 93005; 85379; 83880; 80053; 83690; 83735; 84484; 85025; 85610; 85730; 71046; 99285; 96374; 96375 ×2; J2060; J2405; J1885

== ENCOUNTER → 2019-04-13 | Outpatient (CLI) | payer BC ==
--- NOTE | 2019-04-13 09:37 | CT ---
EXAMINATION TYPE: CT chest w con DATE OF EXAM: 04/13/2019 COMPARISON: 08/04/2017 HISTORY: 44-year-old female Pulmonary nodules TECHNIQUE: Contiguous axial scanning of the chest after the administration of 100 mL of Isovue 300. Coronal/sagittal reconstructions performed. CT DLP: 519.5mGycm. Automatic exposure control utilized for a dose reduction. FINDINGS: Bilateral retropectoral breast implants. Heart normal size without pericardial effusion. Aorta normal caliber with conventional vessel branching anatomy. No thoracic lymphadenopathy by CT size criteria. Some mild hazy subpleural atelectasis dependently within the posterior lung bases. Scattered 5 mm and smaller pulmonary nodules within the lung bases are unchanged back to 08/04/2017. This suggests a miguelina gn etiology but an additional one-year follow-up can establish more than 2 years of stability. No con solidation or pleural effusion. Calcified granuloma within the spleen. Stable chronic ovoid fluid collection along the anterior midli ne abdomen along the superficial fascia of the abdominal wall musculature measuring 6.0 cm wide by 3. 0 cm craniocaudal by 1.3 cm thick. Unchanged from 08/04/2017, possible chronic hematoma or seroma. Angelina elate clinically. Bones: No osseous destructive process. IMPRESSION: 1. A few 5 mm and smaller pulmonary nodules within the lung bases, unchanged back to 08/04/2017 suggest ing a benign etiology. An additional one-year follow-up recommended to ensure at least 2 years of sta bility. 2. Chronic ovoid fluid collection along the anterior midline abdomen measuring 6.0 x 3.0 x 1.3 cm sug gesting chronic seroma or hematoma. Clinically correlate.
== END | disposition home or self-care (01) ==
LOC: RADCTMAIN 08:30
PROVIDERS: ATTEND Family Medicine
DX: R91.8 Other nonspecific abnormal finding of lung field (principal)
CPT/HCPCS: 71260; Q9967

== ENCOUNTER → 2019-04-20 | Outpatient (CLI) | payer BC ==
--- NOTE | 2019-04-20 09:40 | NM ---
EXAMINATION TYPE: NM hepatobiliary w CCK DATE OF EXAM: 04/20/2019 COMPARISON: NONE HISTORY: Chronic cholecystitis TECHNIQUE: After the intravenous administration of 4.67 mCi Tc 99m Mebrofenin hepatobiliary scintigra phy is performed. Immediate images post injection. FINDINGS: There is satisfactory initial accumulation of tracer by the liver. The gallbladder is visualized wit hin 10 minutes. The small bowel activity is noted on delayed images. At one hour CCK was administer ed, patient was injected with 1.8 mcg of Kinevac, and gallbladder ejection fraction is calculated at 91 %, above the upper limit of the normal range. Therefore there is no scintigraphic evidence of cys tic or common bile duct obstruction to suggest acute cholecystitis. IMPRESSION: Findings may represent hyper dynamic gallbladder.
== END | disposition home or self-care (01) ==
LOC: RADNMMAIN 06:48
PROVIDERS: ATTEND Surgery
DX: K81.1 Chronic cholecystitis (principal)
CPT/HCPCS: 78227; A9537; J2805

== ENCOUNTER → 2019-05-03 | Day surgery (SDC) | payer BC ==
[2019-04-28 16:04] VITALS: BMI 36.3
[~2019-05-03] MED LIST changes: +BUPIVACAINE (PF) 0.5% 30 ML VIAL SQ ONE; +GLYCOPYRROLATE 0.2 MG/ML 2 ML VIAL ONE; +HEPARIN SODIUM,PORCINE 5,000 UNIT/ML 1 ML VIAL SQ ONE; +HYDROcodone/APAP 10-325MG 1 EACH TAB PO ONE; +HYDROmorphone (PF) 1 MG/ML ONE; +KETOROLAC 30 MG/ML 1 ML VIAL IVP SCH; +KETOROLAC 30 MG/ML 1 ML VIAL ONE; +LACTATED RINGERS 1,000 ML IV ONE; +LACTATED RINGERS 1,000 ML IV SCH; +LIDOCAINE 1% (10MG/ML) FOR IV START INTRADERMA PRN; +LIDOCAINE 1% INJ 10MG/ML (20 ML MDV) ONE; +MEPERIDINE 50 MG/ML SYRINGE IVP ONE; +METOCLOPRAMIDE 5 MG/ML 2 ML VIAL IVP PRN; +MIDAZOLAM 2 MG/2 ML VIAL ONE; +NEOSTIGMINE 1 MG/ML 10 ML VIAL ONE; -ONDANSETRON 4 MG/2 ML VIAL IVP ONE; +PROMETHAZINE INJ 25 MG/ML 1 ML VIAL IVPB ONE; +PROPOFOL 10 MG/ML 20 ML VIAL IV ONE; +ROCURONIUM BROMIDE 10 MG/ML 5 ML VIAL IV ONE; +SCOPOLAMINE 1.5MG/72HR PATCH TRANSDERM ONE; +SUCCINYLCHOLINE CHLORIDE 100 MG/5 ML SYR IV ONE; -ceFAZolin 2 GM in SODIUM CHLORIDE 0.9% 100 ML IVPB ONE; +fentaNYL (PF) 50 MCG/ML 2 ML AMP ONE
[2019-05-03] MEDS: ONDANSETRON 4 MG/2 ML VIAL IVP ONE ×2 (09:38→11:57)
--- NOTE | 2019-05-03 09:49 | P.GSHP ---
History of Present Illness H&P Date: 05/03/19 Chief Complaint: Right upper quadrant pain, epigastric mass This a 44-year-old female who's had complaints of epigastric and right upper quadrant pain after eating greasy or fried foods. Patient's recent HIDA scan shows abnormally high ejection fraction. She presents today for laparoscopic ostectomy for chronic lysis. Patient also has a epigastric abdominal wall mass. Patient will undergo excision of the mass today. Past Medical History Past Medical History: Asthma, Musculoskeletal Disorder Additional Past Medical History / Comment(s): ENVIRONMENTAL ALLERGIES, RLS, DDD WITH LOWER BACK & NECK PAIN., STATES PAIN LEFT HIP. CARPAL TUNNEL SYNDROME LEFT WRIST., MIGRAINES-HAS DAITH PIERCING. History of Any Multi-Drug Resistant Organisms: None Reported Past Surgical History: Hysterectomy, Orthopedic Surgery, Tubal Ligation Additional Past Surgical History / Comment(s): right arm Past Anesthesia/Blood Transfusion Reactions: Motion Sickness, Postoperative Nausea & Vomiting (PONV) Past Psychological History: ADD/ADHD, Anxiety, Depression Smoking Status: Never smoker Past Alcohol Use History: Occasional Past Drug Use History: None Reported - Past Family History Mother Family Medical History: Cancer Additional Family Medical History / Comment(s): LUNG CANCER Father Family Medical History: Cancer Medications and Allergies Home Medications Medication Instructions Recorded Confirmed Type HYDROcodone/APAP 10-325MG [[place] 1 tab PO TID PRN 03/05/15 05/03/19 History 10-325] Albuterol Inhaler [Ventolin Hfa 2 puff INHALATION RT-Q4H PRN 03/03/19 05/03/19 History Inhaler] rOPINIRole HCL [Requip] 5 mg PO HS PRN 03/03/19 05/03/19 History Allergies Allergy/AdvReac Type Severity Reaction Status Date / Time bee venom protein (honey bee) Allergy Anaphylaxis Verified 05/03/19 09:33 shellfish derived AdvReac Swelling Verified 05/03/19 09:33 steri strips AdvReac Rash/Hives Uncoded 05/03/19 09:33 Surgical - Exam Vital Signs Temp Pulse Resp BP Pulse Ox 98.9 F 75 16 143/78 98 05/03/19 09:21 05/03/19 09:21 05/03/19 09:21 05/03/19 09:21 05/03/19 09:21 - General well developed, well nourished, no distress - Eyes PERRL - ENT normal pinna - Neck no masses - Respiratory normal expansion - Cardiovascular Rhythm: regular - Abdomen 3 x 5 cm epigastric mass. Abdomen: soft Assessment and Plan Assessment: Cholecystitis, we'll perform laparoscopically safely Epigastric abdominal wall mass. We'll perform excision.
[2019-05-03 11:23] VITALS: TEMP 97.1
[2019-05-03] MEDS: HYDROmorphone 0.5 MG/0.5 ML SYRINGE IVP PRN ×4 (11:45→12:18)
--- NOTE | 2019-05-03 12:16 | P.OP ---
Date of Procedure: 05/03/19 Preoperative Diagnosis: cholecystitis Abdominal wall mass Postoperative Diagnosis: Cholecystitis Abdominal wall seroma Procedure(s) Performed: Laparoscopic cholecystectomy Drainage of abdominal wall seroma Anesthesia: CRISTAL Surgeon: Landry Watson Estimated Blood Loss (ml): 5 Pathology: other (Gallbladder) Condition: stable Disposition: PACU Description of Procedure: The patient was placed on the operating table. The patient received a general endotracheal tube anesthesia. The patients abdomen was prepped and draped in the usual sterile fashion. Through an infraumbilical stab incision, the fascia of the anterior abdominal wall was grasped with a pair of Kochers and then the Veress needle was placed in the peritoneal cavity. Position of the Veress needle was confirmed with positive drop test. The abdomen was then insufflated. After adequate insufflation, the 10 mm trocar was placed in the peritoneal cavity. Following this the laparoscope was placed in the peritoneal cavity. The patient was placed in the head-up, right side up position and then a 5 mm trocar was placed in the right lateral and right subcostal position under direct visualization. A 8 mm trocar was placed in the epigastric position. The gallbladder was grasped in the fundus and infundibulum. Traction on the gallbladder was placed in the lateral and the cephalad positions. The triangle of Calot was visualized.. The cystic duct was bluntly dissected until the union of the cystic duct and common bile duct was seen. A critical view of safety was achieved. The cystic duct was then divided and sealed with the Harmonic scissors. A PDS Endoloop was then placed throughout the cystic duct stump. The cystic artery divided and sealed with the Harmonic scissors. The gallbladder was then removed from the liver bed using Harmonic scissors. The gallbladder was then extracted through the epigastric port site. Operative field was checked for any bleeding spots and Harmonic scissors was used to coagulate the liver bed. The abdomen was irrigated. The trocars were removed. Next, the patient had an epigastric mass. The skin was incised with mass. The left cautery used to dissect through subcutaneous tissues. The fascia was opened just below the fascia was a seroma cavity. This was drained. The fascia was then reapproximated using 0 Vicryl suture. This appeared to be related to her previous abdominoplasty. The skin was closed using interrupted 3-0 Vicryl suture. Dermabond dressing were applied. The patient tolerated the procedure well.
[2019-05-03 12:59] VITALS: RESP 18
[2019-05-03 13:39] VITALS: BP 122/69; PULSE 84
== END ==
LOC: OR 08:52
PROVIDERS: ATTEND Surgery
DX: K81.1 Chronic cholecystitis (principal); R22.2 Localized swelling, mass and lump, trunk; K21.9 Gastro-esophageal reflux disease without esophagitis; J45.909 Unspecified asthma, uncomplicated; G25.81 Restless legs syndrome; G43.909 Migraine, unspecified, not intractable, without status migrainosus; F90.9 Attention-deficit hyperactivity disorder, unspecified type; F41.9 Anxiety disorder, unspecified; F32.9 Major depressive disorder, single episode, unspecified; Z90.710 Acquired absence of both cervix and uterus; Z98.890 Other specified postprocedural states; Z98.51 Tubal ligation status; Z80.1 Family history of malignant neoplasm of trachea, bronchus and lung; Z79.899 Other long term (current) drug therapy; Z91.030 Bee allergy status; Z91.013 Allergy to seafood; Z91.048 Other nonmedicinal substance allergy status; Z98.84 Bariatric surgery status
CPT/HCPCS: 88304; 47562; 22901; J2250; J1644; J1100; J2550; J2710; J2175; J0690; J2405; J2001; J3010; J1885; J1170 ×2; J0330; J2704

== ENCOUNTER 2019-06-10 00:26 | Emergency (ER) | payer BC ==
[2019-06-10 00:33] VITALS: RESP 18; TEMP 97.8
[2019-06-10] MEDS ORDERED: SODIUM CHLORIDE 0.9% 1,000 ML IV STA (00:43)
[2019-06-10 01:13] LABS: Basophils # (A) 0.1 k/uL (0-0.2); Basophils % (A) 1 %; Eosinophils # (A) 0.3 k/uL (0-0.7); Eosinophils % (A) 3 %; HGB 13.7 gm/dL (11.4-16.0); Lymphocytes # (A) 2.8 k/uL (1.0-4.8); Lymphocytes % (A) 29 %; MCH 30.9 pg (25.0-35.0); MCHC 32.5 g/dL (31.0-37.0); MCV 94.8 fL (80.0-100.0); Mean Platelet Volume 7.6; Monocytes # (A) 0.6 k/uL (0-1.0); Monocytes % (A) 6 %; Neutrophils # (A) 5.7 k/uL (1.3-7.7); Neutrophils % (A) 59 %; Platelet Count 245 k/uL (150-450); RBC 4.43 m/uL (3.80-5.40); RDW 12.7 % (11.5-15.5); WBC 9.6 k/uL (3.8-10.6)
--- NOTE | 2019-06-10 01:21 | XR ---
EXAMINATION TYPE: XR chest 2V DATE OF EXAM: 06/10/2019 COMPARISON: 03/03/2019 HISTORY: Chest pain TECHNIQUE: FINDINGS: There is poor inspiration. Heart size is normal. There is no heart failure. There are chest leads. Bony thorax is intact. Lungs are clear of infiltrate. IMPRESSION: Inspiration is decreased compared to old exam. No heart failure.
[2019-06-10 01:36] LABS: ALT 29 U/L (4-34); AST 37 U/L (14-36); African American GFR (CKD) >90 (>60 ml/min/1.73 sqM); Albumin 4.6 g/dL (3.5-5.0); Alkaline Phosphatase 75 U/L (38-126); Anion Gap 10 mmol/L; Blood Urea Nitrogen 14 mg/dL (7-17); Calcium 9.4 mg/dL (8.4-10.2); Carbon Dioxide 20 mmol/L (22-30); Chloride 105 mmol/L (98-107); Glucose 103 mg/dL (74-99); Non-African American GFR(CKD) >90 (>60 ml/min/1.73 sqM); Potassium 4.9 mmol/L (3.5-5.1); Sodium 135 mmol/L (137-145); Total Bilirubin 0.8 mg/dL (0.2-1.3); Total Protein 8.1 g/dL (6.3-8.2)
[2019-06-10 01:41] LABS: D-Dimer 0.39 mg/L FEU (<0.60); Partial Thromboplastin Time 23.6 sec (22.0-30.0); Prothrombin Time 10.4 sec (9.0-12.0)
[2019-06-10] MEDS ORDERED: KETOROLAC 30 MG/ML 1 ML VIAL IVP STA (02:35)
--- NOTE | 2019-06-10 02:36 | ED ---
General Adult HPI - General Chief complaint: Chest Pain Stated complaint: Anxiety Attack/Chest Pain Time Seen by Provider: 06/10/19 00:43 Source: patient Mode of arrival: ambulatory Limitations: no limitations - History of Present Illness Initial comments: Betty is a pleasant 44-year-old female who presents the emergency department today for evaluation of chest wall pain. Patient reports that she's been experiencing a burning change pain that is most prominent in the right side of her chest. Worse with movement palpation and deep inspiration. Not associated with any shortness of breath. No exertional chest pain diaphoresis or lightheadedness. Patient has no cardiac history. Patient reports she does have a history of anxiety and he usually experiences palpitations but this is different. Patient also reports she is a mild lower abdominal pain with no associated change in bowel or bladder habits no nausea or vomiting. - Related Data Home Medications Medication Instructions Recorded Confirmed HYDROcodone/APAP 10-325MG [[place] 1 tab PO TID PRN 03/05/15 05/03/19 10-325] Albuterol Inhaler [Ventolin Hfa 2 puff INHALATION RT-Q4H PRN 03/03/19 05/03/19 Inhaler] rOPINIRole HCL [Requip] 5 mg PO HS PRN 03/03/19 05/03/19 Allergies Allergy/AdvReac Type Severity Reaction Status Date / Time bee venom protein (honey bee) Allergy Anaphylaxis Verified 06/10/19 00:32 shellfish derived AdvReac Swelling Verified 06/10/19 00:32 steri strips AdvReac Rash/Hives Uncoded 06/10/19 00:32 Review of Systems ROS Statement: Those systems with pertinent positive or pertinent negative responses have been documented in the HPI. ROS Other: All systems not noted in ROS Statement are negative. Past Medical History Past Medical History: Asthma, Musculoskeletal Disorder Additional Past Medical History / Comment(s): ENVIRONMENTAL ALLERGIES, RLS, DDD WITH LOWER BACK & NECK PAIN., STATES PAIN LEFT HIP. CARPAL TUNNEL SYNDROME LEFT WRIST., MIGRAINES-HAS DAITH PIERCING. History of Any Multi-Drug Resistant Organisms: None Reported Past Surgical History: Hysterectomy, Orthopedic Surgery, Tubal Ligation Additional Past Surgical History / Comment(s): right arm Past Anesthesia/Blood Transfusion Reactions: Motion Sickness, Postoperative [place] & Vomiting (PONV) Past Psychological History: ADD/ADHD, Anxiety, Depression Smoking Status: Never smoker Past Alcohol Use History: Occasional Past Drug Use History: None Reported - Past Family History Mother Family Medical History: Cancer Additional Family Medical History / Comment(s): LUNG CANCER Father Family Medical History: Cancer General Exam - General Exam Comments Initial Comments: Physical Exam GENERAL: Patient is well-developed and well-nourished. Patient is nontoxic and well- hydrated and is in no distress. HENT: Normocephalic, Atraumatic. EYES: PERRL, EOMI PULMONARY: Unlabored respirations. No audible rales rhonchi or wheezing was noted. CARDIOVASCULAR: There is a regular rate and rhythm without any murmurs gallops or rubs. Significant tenderness to palpation of the chest wall ABDOMEN: Soft and nontender with normal bowel sounds. Tenderness to palpation over the ASIS No tenderness to palpation the right lower quadrant no McBurney's point t enderness negative Rovsing sign SKIN: Skin is clear with no lesions or rashes and otherwise unremarkable. : Deferred NEUROLOGIC: Patient is alert and oriented x3. Moving all extremities spontaneously MUSCULOSKELETAL: Normal extremities with adequate strength and full range of motion. No lower extremity swelling or edema. No calf tenderness. PSYCHIATRIC: Normal psychiatric evaluation. Limitations: no limitations Course Vital Signs 06/10/19 06/10/19 00:29 03:21 Temperature 97.8 F Pulse Rate 82 77 Respiratory 18 18 Rate Blood Pressure 116/81 139/83 O2 Sat by Pulse 98 96 Oximetry EKG Findings - EKG Comments: EKG Findings:: EKG was obtained due to complaint of chest pain, EKG was obtained at 12:30 AM, rate is 79 rhythm is sinus there is a normal axis, there are normal intervals, LA 150, QRS 94, QTC is 465. There are no acute ST elevations or depressions there is no evidence of acute ischemia or infarction. Medical Decision Making - Medical Decision Making The patient was seen and evaluated history and physical exam are concerning for likely costochondritis as the patient has a reproducible right-sided chest wall pain Patient also has tenderness to palpation of the ASIS with no obvious bruising Labs were obtained and were relatively unremarkable Troponin and d-dimer are both negative Patient was treated with Toradol I discussed with the patient my suspicion that this is a musculoskeletal chest wall pain likely costochondritis. Supportive care measures were advised follow- up with primary care physician early next week was advised to return parameters were discussed and the patient was discharged home in stable condition. - Lab Data Result diagrams: 06/10/19 01:02 06/10/19 01:02 Lab Results 06/10/19 06/10/19 06/10/19 Range/Units 01:02 01:02 01:02 WBC 9.6 (3.8-10.6) k/uL RBC 4.43 (3.80-5.40) m/uL Hgb 13.7 (11.4-16.0) gm/dL Hct 42.0 (34.0-46.0) % MCV 94.8 (80.0-100.0) fL MCH 30.9 (25.0-35.0) pg MCHC 32.5 (31.0-37.0) g/dL RDW 12.7 (11.5-15.5) % Plt Count 245 (150-450) k/uL Neutrophils % 59 % Lymphocytes % 29 % Monocytes % 6 % Eosinophils % 3 % Basophils % 1 % Neutrophils # 5.7 (1.3-7.7) k/uL Lymphocytes # 2.8 (1.0-4.8) k/uL Monocytes # 0.6 (0-1.0) k/uL Eosinophils # 0.3 (0-0.7) k/uL Basophils # 0.1 (0-0.2) k/uL PT 10.4 (9.0-12.0) sec INR 1.0 (<1.2) APTT 23.6 (22.0-30.0) sec D-Dimer 0.39 (<0.60) mg/L FEU Sodium 135 L (137-145) mmol/L Potassium 4.9 (3.5-5.1) mmol/L Chloride 105 (98-107) mmol/L Carbon Dioxide 20 L (22-30) mmol/L Anion Gap 10 mmol/L BUN 14 (7-17) mg/dL Creatinine 0.76 (0.52-1.04) mg/dL Est GFR (CKD-EPI)AfAm >90 (>60 ml/min/1.73 sqM) Est GFR (CKD-EPI)NonAf >90 (>60 ml/min/1.73 sqM) Glucose 103 H (74-99) mg/dL Calcium 9.4 (8.4-10.2) mg/dL Magnesium 2.0 (1.6-2.3) mg/dL Total Bilirubin 0.8 (0.2-1.3) mg/dL AST 37 H (14-36) U/L ALT 29 (4-34) U/L Alkaline Phosphatase 75 (38-126) U/L Troponin I (0.000-0.034) ng/mL NT-Pro-B Natriuret Pep pg/mL Total Protein 8.1 (6.3-8.2) g/dL Albumin 4.6 (3.5-5.0) g/dL 06/10/19 06/10/19 Range/Units 01:02 01:02 WBC (3.8-10.6) k/uL RBC (3.80-5.40) m/uL Hgb (11.4-16.0) gm/dL Hct (34.0-46.0) % MCV (80.0-100.0) fL MCH (25.0-35.0) pg MCHC (31.0-37.0) g/dL RDW (11.5-15.5) % Plt Count (150-450) k/uL Neutrophils % % Lymphocytes % % Monocytes % % Eosinophils % % Basophils % % Neutrophils # (1.3-7.7) k/uL Lymphocytes # (1.0-4.8) k/uL Monocytes # (0-1.0) k/uL Eosinophils # (0-0.7) k/uL Basophils # (0-0.2) k/uL PT (9.0-12.0) sec INR (<1.2) APTT (22.0-30.0) sec D-Dimer (<0.60) mg/L FEU Sodium (137-145) mmol/L Potassium (3.5-5.1) mmol/L Chloride (98-107) mmol/L Carbon Dioxide (22-30) mmol/L Anion Gap mmol/L BUN (7-17) mg/dL Creatinine (0.52-1.04) mg/dL Est GFR (CKD-EPI)AfAm (>60 ml/min/1.73 sqM) Est GFR (CKD-EPI)NonAf (>60 ml/min/1.73 sqM) Glucose (74-99) mg/dL Calcium (8.4-10.2) mg/dL Magnesium (1.6-2.3) mg/dL Total Bilirubin (0.2-1.3) mg/dL AST (14-36) U/L ALT (4-34) U/L Alkaline Phosphatase (38-126) U/L Troponin I <0.012 (0.000-0.034) ng/mL NT-Pro-B Natriuret Pep 30 pg/mL Total Protein (6.3-8.2) g/dL Albumin (3.5-5.0) g/dL Disposition Clinical Impression: Atypical chest pain, Costochondral pain Disposition: HOME SELF-CARE Condition: Stable Instructions (If sedation given, give patient instructions): Costochondritis (ED) Is patient prescribed a controlled substance at d/c from ED?: No Referrals: Feliberto Kapadia [Primary Care Provider] - 1-2 days
[2019-06-10 03:53] VITALS: BP 139/83; PULSE 77
== END 2019-06-10 03:21 | disposition home or self-care (01) ==
LOC: EC 00:26
DX: R07.1 Chest pain on breathing (principal); R10.30 Lower abdominal pain, unspecified; J45.909 Unspecified asthma, uncomplicated; Z91.013 Allergy to seafood; Z91.030 Bee allergy status; Z91.048 Other nonmedicinal substance allergy status; Z79.899 Other long term (current) drug therapy; Z86.59 Personal history of other mental and behavioral disorders
CPT/HCPCS: 36415; 93005; 85379; 83880; 80053; 83735; 84484; 85025; 85610; 85730; 71046; 99285; 96374; 96361 ×2; J1885

== ENCOUNTER 2019-06-16 07:30 | Day surgery (SDC) | payer BC ==
[2019-06-14 09:01] VITALS: BMI 35.6
[~2019-06-16 07:30] MED LIST changes: -BUPIVACAINE (PF) 0.5% 30 ML VIAL SQ ONE; -DEXAMETHASONE SOD PHOSPHATE 10 MG/ML 1 ML VIAL IV ONE; -GLYCOPYRROLATE 0.2 MG/ML 2 ML VIAL ONE; -HEPARIN SODIUM,PORCINE 5,000 UNIT/ML 1 ML VIAL SQ ONE; -HYDROcodone/APAP 10-325MG 1 EACH TAB PO ONE; -HYDROmorphone (PF) 1 MG/ML ONE; -KETOROLAC 30 MG/ML 1 ML VIAL IVP SCH; -KETOROLAC 30 MG/ML 1 ML VIAL ONE; -LACTATED RINGERS 1,000 ML IV ONE; -LIDOCAINE 1% INJ 10MG/ML (20 ML MDV) ONE; -MEPERIDINE 50 MG/ML SYRINGE IVP ONE; -METOCLOPRAMIDE 5 MG/ML 2 ML VIAL IVP PRN; -MIDAZOLAM 2 MG/2 ML VIAL IV PRN; -MIDAZOLAM 2 MG/2 ML VIAL ONE; -NEOSTIGMINE 1 MG/ML 10 ML VIAL ONE; -PROMETHAZINE INJ 25 MG/ML 1 ML VIAL IVPB ONE; -PROPOFOL 10 MG/ML 20 ML VIAL IV ONE; -ROCURONIUM BROMIDE 10 MG/ML 5 ML VIAL IV ONE; -SCOPOLAMINE 1.5MG/72HR PATCH TRANSDERM ONE; -SUCCINYLCHOLINE CHLORIDE 100 MG/5 ML SYR IV ONE; -fentaNYL (PF) 50 MCG/ML 2 ML AMP ONE
[2019-06-16 07:59] VITALS: TEMP 97
[2019-06-16] MEDS ORDERED: LIDOCAINE 1% INJ 10MG/ML (20 ML MDV) ONE (08:49)
[2019-06-16] MEDS ORDERED: PROPOFOL 10 MG/ML 20 ML VIAL IV ONE (08:49)
--- NOTE | 2019-06-16 09:00 | P.GSHP ---
History of Present Illness H&P Date: 06/16/19 Chief Complaint: Diarrhea This a 44-year-old female who has history of diarrhea. Patient rents today for colonoscopy. Past Medical History Past Medical History: Asthma, Musculoskeletal Disorder Additional Past Medical History / Comment(s): ENVIRONMENTAL ALLERGIES, RLS, DDD WITH LOWER BACK & NECK PAIN., STATES PAIN LEFT HIP. CARPAL TUNNEL SYNDROME LEFT WRIST., MIGRAINES-HAS DAITH PIERCINGS, STATES HAVING PAIN AFTER EATING. History of Any Multi-Drug Resistant Organisms: None Reported Past Surgical History: Cholecystectomy, Hysterectomy, Orthopedic Surgery, Tubal Ligation Additional Past Surgical History / Comment(s): right arm, cholecystectomy 05/03/19 Past Anesthesia/Blood Transfusion Reactions: Motion Sickness, Postoperative Nausea & Vomiting (PONV) Past Psychological History: ADD/ADHD, Anxiety, Depression Smoking Status: Never smoker Past Alcohol Use History: Occasional Past Drug Use History: None Reported - Past Family History Mother Family Medical History: Cancer Additional Family Medical History / Comment(s): LUNG CANCER Father Family Medical History: Cancer Additional Family Medical History / Comment(s): LUNG CANCER WITH METS Medications and Allergies Home Medications Medication Instructions Recorded Confirmed Type HYDROcodone/APAP 10-325MG [[place] 1 tab PO TID PRN 03/05/15 06/16/19 History 10-325] Albuterol Inhaler [Ventolin Hfa 2 puff INHALATION RT-Q4H PRN 03/03/19 06/16/19 History Inhaler] rOPINIRole HCL [Requip] 5 mg PO HS PRN 03/03/19 06/16/19 History Allergies Allergy/AdvReac Type Severity Reaction Status Date / Time bee venom protein (honey bee) Allergy Anaphylaxis Verified 06/16/19 07:57 shellfish derived AdvReac Swelling Verified 06/16/19 07:57 steri strips AdvReac Rash/Hives Uncoded 06/16/19 07:57 Surgical - Exam Vital Signs Temp Pulse Resp BP Pulse Ox 97 F L 76 16 140/71 98 06/16/19 07:58 06/16/19 07:58 06/16/19 07:58 06/16/19 07:58 06/16/19 07:58 - General well developed, well nourished, no distress - Eyes PERRL - ENT normal pinna - Neck no masses - Respiratory normal expansion - Cardiovascular Rhythm: regular - Abdomen Abdomen: soft, non tender Assessment and Plan Assessment: Diarrhea. We'll perform colonoscopy.
[2019-06-16] MEDS ORDERED: ONDANSETRON 4 MG/2 ML VIAL IVP ONE (09:20)
[2019-06-16 10:18] VITALS: BP 119/71; PULSE 66; RESP 16
--- NOTE | 2019-06-28 10:07 | P.OP ---
Date of Procedure: 06/16/19 Preoperative Diagnosis: Diarrhea Postoperative Diagnosis: Normal colon pathology pending Procedure(s) Performed: Colonoscopy Anesthesia: MAC Surgeon: Landry Watson Pathology: other (Random colon biopsy) Condition: stable Disposition: PACU Description of Procedure: The patient's placed on the endoscopy table in the lateral position she received IV sedation. Digital rectal exam was performed which revealed no abnormalities. The flexor colonoscope was then placed patient anus and passed throughout the entire colon. The ileocecal valve was visualized. There was no abnormality noted colon. Due to the patient's symptoms a diarrhea. Random biopsy the right, transverse, left and sigmoid colon were performed. There was no inflammatory changes or diverticula seen. The scope was then brought back the rectum and this appeared normal. A rectal biopsy biopsies performed. All of the biopsy performed with the cold forcep. Scope withdrawn from patient.
== END 2019-06-16 09:48 | disposition home or self-care (01) ==
LOC: ORWHC2ENDO 07:30
PROVIDERS: ATTEND Surgery
DX: R19.7 Diarrhea, unspecified (principal); J45.909 Unspecified asthma, uncomplicated; G25.81 Restless legs syndrome; M51.9 Unspecified thoracic, thoracolumbar and lumbosacral intervertebral disc disorder; M54.5 Low back pain; M50.30 Other cervical disc degeneration, unspecified cervical region; G56.02 Carpal tunnel syndrome, left upper limb; G43.909 Migraine, unspecified, not intractable, without status migrainosus; F90.9 Attention-deficit hyperactivity disorder, unspecified type; F41.9 Anxiety disorder, unspecified; F32.9 Major depressive disorder, single episode, unspecified; Z91.09 Other allergy status, other than to drugs and biological substances; Z90.49 Acquired absence of other specified parts of digestive tract; Z90.710 Acquired absence of both cervix and uterus; Z98.890 Other specified postprocedural states; Z98.51 Tubal ligation status; Z87.898 Personal history of other specified conditions; Z91.89 Other specified personal risk factors, not elsewhere classified; Z91.030 Bee allergy status; Z91.013 Allergy to seafood; Z97.2 Presence of dental prosthetic device (complete) (partial); Z79.891 Long term (current) use of opiate analgesic; Z79.899 Other long term (current) drug therapy; Z80.1 Family history of malignant neoplasm of trachea, bronchus and lung; Z80.9 Family history of malignant neoplasm, unspecified
CPT/HCPCS: 88305; 45380; J2405; J2001; J2704

== ENCOUNTER → 2019-10-21 | Outpatient (CLI) | payer BC ==
--- NOTE | 2019-10-22 01:06 | MR ---
EXAMINATION TYPE: MR cervical spine wo/w con DATE OF EXAM: 10/21/2019 COMPARISON: 06/20/2015 HISTORY: Neck pain, headaches, valeria shoulder pain CONTRAST: Standard multiplanar, multisequence MRI departmental protocol utilizing 9 mL intravenous Gadavist romaine olinium contrast. Cervical vertebra have normal spacing and alignment. There is no compression fracture. Cervical spina l cord has normal signal pattern. There is no evidence of edema. There is no cervical spinal stenosis . There is no cervical disc herniation. There is developmentally large spinal canal. The brainstem ap pears intact. The contrast images show no pathologic enhancement. There is some uncovertebral spurrin g on the right side at C4-5 C5-6 with some neural foraminal impingement. Unchanged. IMPRESSION: Mild uncovertebral spurring and right side neural foraminal mild impingement at C4-5 and C5-6 not sig nificantly different than last exam. No spinal stenosis. No cervical disc herniation.
== END | disposition home or self-care (01) ==
LOC: RADMRIMAIN 18:45
PROVIDERS: ATTEND Family Medicine
DX: M54.2 Cervicalgia (principal)
CPT/HCPCS: 72156; A9585

== ENCOUNTER → 2020-07-17 | Outpatient (CLI) | payer BC ==
--- NOTE | 2020-07-17 13:45 | MM ---
Reason for exam: clinical finding. Last mammogram was performed 13 years and 6 months ago. History: Family history of breast cancer in maternal aunt. Benign US right core biopsy of the right breast, February 15, 2007. Benign US right core biopsy of the right breast, February 15, 2007. Saline implants in both breasts, 2003. Took hormonal contraceptives for 2 months. Physical Findings: Nurse did not find any significant physical abnormalities on exam. MG Diag Mamm Implants LELA w CAD Bilateral CC, MLO, and ID view(s) were taken. LM and spot compression MLO view(s) were taken of the left breast. No prior studies available for comparison. The breast tissue is heterogeneously dense. This may lower the sensitivity of mammography. Previous mammotome biopsy in the right breast x 2 medially. Bilateral saline implants. Palpable marker 6 o'clock posterior right breast. Small circumscribed isodense nodularity measures 6mm posterior superior left MLO view. Not as apparent on lateral and spot views. These results were verbally communicated with the patient and result sheet given to the patient on 07/17/20. ASSESSMENT: Incomplete: need additional imaging evaluation, BI-RAD 0 RECOMMENDATION: Ultrasound of both breasts. (right palpable, left superior half)
--- NOTE | 2020-07-17 13:47 | USB ---
Reason for exam: additional evaluation requested from abnormal screening. History: Family history of breast cancer in maternal aunt. Benign US right core biopsy of the right breast, February 15, 2007. Benign US right core biopsy of the right breast, February 15, 2007. Saline implants in both breasts, 2003. Took hormonal contraceptives for 2 months. US Breast Limited BILAT Right limited breast ultrasound including focal area of concern, retroareolar and axilla demonstrates no cystic or solid lesion seen. Left limited breast ultrasound including focal area of concern, retroareolar and axilla demonstrates no cystic or solid lesion seen. Right scanned 6 o'clock palpable, left scanned 6-3 o'clock. These results were verbally communicated with the patient and result sheet given to the patient on 07/17/20. ASSESSMENT: Probably benign, BI-RAD 3 RECOMMENDATION: Follow-up diagnostic mammogram of the left breast in 6 months. Manage on a clinical basis with regard to any suspicious palpable.
== END | disposition home or self-care (01) ==
LOC: RADMAMWWP 09:21
PROVIDERS: ATTEND Family Medicine
DX: Z80.3 Family history of malignant neoplasm of breast (principal)
CPT/HCPCS: 77066

== ENCOUNTER 2020-12-06 13:14 | Emergency (ER) | payer BC ==
[2020-12-06 13:24] VITALS: TEMP 98.6
--- NOTE | 2020-12-06 13:40 | ED ---
General Adult HPI - General Chief complaint: Upper Respiratory Infection Stated complaint: coughing up blood Time Seen by Provider: 12/06/20 13:28 Source: patient Mode of arrival: ambulatory Limitations: no limitations - History of Present Illness Initial comments: Dictation was produced using [employer] dictation software. please excuse any grammatical, word or spelling errors. Chief Complaint: 45-year-old female presents with 1 day of hemoptysis History of Present Illness: Is 45-year-old female in no nodules to the bilateral lungs. Patient states that she had bright red hemoptysis earlier today. States that she has chronic shortness of breath. No history of blood clots. She does have some mild pleuritic chest pain. She states that her shortness of breath is stable. Does not take in adequate condition medications. She has known history of nodules in her lung parenchyma that are being monitored with annual CTs. Patient states that the coughing and hemoptysis began pretty close in time. She denies that she had severe bouts of coughing followed by hemoptysis. The ROS documented in this emergency department record has been reviewed and confirmed by me. Those systems with pertinent positive or negative responses have been documented in the HPI. All other systems are other negative and/or noncontributory. PHYSICAL EXAM: General Impression: Alert and oriented x3, not in acute distress HEENT: Normocephalic atraumatic, extra-ocular movements intact, pupils equal and reactive to light bilaterally, mucous membranes moist. Cardiovascular: Heart regular rate and rhythm Chest: Able to complete full sentences, no retractions, no tachypnea, lungs to auscultation bilaterally Abdomen: abdomen soft, non-tender, non-distended, no organomegaly Musculoskeletal: Pulses present and equal in all extremities, no peripheral edema Motor: no focal deficits noted Neurological: CN II-XII grossly intact, no focal motor or sensory deficits noted Skin: Intact with no visualized rashes Psych: Normal affect and mood ED course: 45-year-old female with history of pulmonary nodules presents with vincent hemoptysis. Vital signs upon arrival are within acceptable limits. Patient has no DVT symptoms. 3 evaluation obtained. CBC metabolic panel is unremarkable. CT angioma was obtained for evaluation of hemoptysis. No CT evidence for acute pulmonary embolism. No acute pulmonary process. Patient observed in emergency department for approximately 2 hours and 30 minutes found to be stable medical condition. Patient be discharged. She is advised follow-up with primary care doctor. Clinical presentation likely hemoptysis secondary to mucosal tear. Nodules do appear to be stable from previous CTs. Patient be discharged. - Related Data Home Medications Medication Instructions Recorded Confirmed Dextroamphetamine/Amphetamine 20 mg PO BID@0930,1600 12/06/20 12/06/20 [Adderall] HYDROcodone/APAP 7.5-325MG [[place] 1 tab PO TID PRN 12/06/20 12/06/20 7.5-325] Naproxen 500 mg PO BID PRN 12/06/20 12/06/20 rOPINIRole HCL [Requip] 3 mg PO HS PRN 12/06/20 12/06/20 Allergies Allergy/AdvReac Type Severity Reaction Status Date / Time bee venom protein (honey bee) Allergy Anaphylaxis Verified 07/17/20 10:20 shellfish derived AdvReac Swelling Verified 07/17/20 10:20 steri strips AdvReac Rash/Hives Uncoded 07/17/20 10:20 Review of Systems ROS Statement: Those systems with pertinent positive or pertinent negative responses have been documented in the HPI. ROS Other: All systems not noted in ROS Statement are negative. Past Medical History Past Medical History: Asthma, Musculoskeletal Disorder Additional Past Medical History / Comment(s): ENVIRONMENTAL ALLERGIES, RLS, DDD WITH LOWER BACK & NECK PAIN., STATES PAIN LEFT HIP. CARPAL TUNNEL SYNDROME LEFT WRIST., MIGRAINES-HAS DAITH PIERCING. History of Any Multi-Drug Resistant Organisms: None Reported Past Surgical History: Hysterectomy, Orthopedic Surgery, Tubal Ligation Additional Past Surgical History / Comment(s): right arm Past Anesthesia/Blood Transfusion Reactions: Motion Sickness, Postoperative Nausea & Vomiting (PONV) Past Psychological History: ADD/ADHD, Anxiety, Depression Smoking Status: Never smoker Past Alcohol Use History: Occasional Past Drug Use History: None Reported - Past Family History Mother Family Medical History: Cancer Additional Family Medical History / Comment(s): LUNG CANCER Father Family Medical History: Cancer Additional Family Medical History / Comment(s): LUNG CANCER WITH METS General Exam Limitations: no limitations Course Vital Signs 12/06/20 12/06/20 13:19 14:41 Temperature 98.6 F Pulse Rate 96 88 Respiratory 17 18 Rate Blood Pressure 187/83 161/96 O2 Sat by Pulse 98 97 Oximetry Medical Decision Making - Lab Data Result diagrams: 12/06/20 13:57 12/06/20 13:57 Lab Results 12/06/20 12/06/20 Range/Units 13:57 13:57 WBC 7.5 (3.8-10.6) k/uL RBC 4.57 (3.80-5.40) m/uL Hgb 14.7 (11.4-16.0) gm/dL Hct 42.9 (34.0-46.0) % MCV 93.8 (80.0-100.0) fL MCH 32.2 (25.0-35.0) pg MCHC 34.4 (31.0-37.0) g/dL RDW 13.0 (11.5-15.5) % Plt Count 354 (150-450) k/uL MPV 7.5 Neutrophils % 73 % Lymphocytes % 19 % Monocytes % 5 % Eosinophils % 1 % Basophils % 1 % Neutrophils # 5.5 (1.3-7.7) k/uL Lymphocytes # 1.4 (1.0-4.8) k/uL Monocytes # 0.4 (0-1.0) k/uL Eosinophils # 0.1 (0-0.7) k/uL Basophils # 0.0 (0-0.2) k/uL Sodium 136 L (137-145) mmol/L Potassium 4.4 (3.5-5.1) mmol/L Chloride 104 (98-107) mmol/L Carbon Dioxide 22 (22-30) mmol/L Anion Gap 10 mmol/L BUN 12 (7-17) mg/dL Creatinine 0.70 (0.52-1.04) mg/dL Est GFR (CKD-EPI)AfAm >90 (>60 ml/min/1.73 sqM) Est GFR (CKD-EPI)NonAf >90 (>60 ml/min/1.73 sqM) Glucose 109 H (74-99) mg/dL Calcium 9.6 (8.4-10.2) mg/dL Disposition Clinical Impression: Hemoptysis Disposition: HOME SELF-CARE Condition: Fair Instructions (If sedation given, give patient instructions): Hemoptysis (ED) Is patient prescribed a controlled substance at d/c from ED?: No Referrals: Feliberto Kapadia [Primary Care Provider] - 1-2 days
[2020-12-06 14:14] LABS: Basophils % (A) 1 %; Eosinophils # (A) 0.1 k/uL (0-0.7); Eosinophils % (A) 1 %; HCT 42.9 % (34.0-46.0); HGB 14.7 gm/dL (11.4-16.0); Lymphocytes # (A) 1.4 k/uL (1.0-4.8); Lymphocytes % (A) 19 %; MCH 32.2 pg (25.0-35.0); MCHC 34.4 g/dL (31.0-37.0); MCV 93.8 fL (80.0-100.0); Mean Platelet Volume 7.5; Monocytes # (A) 0.4 k/uL (0-1.0); Monocytes % (A) 5 %; Neutrophils # (A) 5.5 k/uL (1.3-7.7); Neutrophils % (A) 73 %; Platelet Count 354 k/uL (150-450); RBC 4.57 m/uL (3.80-5.40); WBC 7.5 k/uL (3.8-10.6)
[2020-12-06] MEDS ORDERED: diphenhydrAMINE 50 MG/ML 1 ML VIAL IVP STA (14:19)
[2020-12-06] MEDS ORDERED: methylPREDNISolone SOD SUCCI 125 MG/2 ML VIAL IV STA (14:19)
[2020-12-06] MEDS ORDERED: FAMOTIDINE 20 MG/2 ML VIAL IV STA (14:19)
[2020-12-06 14:23] LABS: African American GFR (CKD) >90 (>60 ml/min/1.73 sqM); Anion Gap 10 mmol/L; Blood Urea Nitrogen 12 mg/dL (7-17); Calcium 9.6 mg/dL (8.4-10.2); Carbon Dioxide 22 mmol/L (22-30); Chloride 104 mmol/L (98-107); Glucose 109 mg/dL (74-99); Non-African American GFR(CKD) >90 (>60 ml/min/1.73 sqM); Potassium 4.4 mmol/L (3.5-5.1); Sodium 136 mmol/L (137-145)
[2020-12-06 14:43] VITALS: RESP 18
--- NOTE | 2020-12-06 15:36 | CT ---
EXAMINATION TYPE: CT angio chest DATE OF EXAM: 12/06/2020 3:22 PM COMPARISON: CT chest April 13, 2019 and older study August 04, 2017 HISTORY: Hemoptysis. CT DLP: 382.9 mGycm Automated exposure control for dose reduction was used. CONTRAST: CTA scan of the thorax is performed with IV Contrast, patient injected with 100 mL of Isovue 370, pul monary embolism protocol. MIP images are created and reviewed. FINDINGS: LUNGS: Stable 5 mm subpleural nodule left lower lobe axial image 72. Dependent atelectasis bilateral lower lobes. No new consolidation. No new or enlarging greater than 5 mm nodules. No pleural effusion or pneumothorax seen bilaterally. MEDIASTINUM: There is suboptimal bolus with some heterogeneity in the periphery but no convincing CT evidence for acute pulmonary embolism. Satisfactory enhancement of the aorta without greater than 3.5 cm aneurysm or dissection There are no new greater than 1 cm hilar or mediastinal lymph nodes. No cardiomegaly or pericardial effusion is seen. OTHER: Bilateral subpectoral breast implants are redemonstrated. Bilateral metallic nipple limits. C holecystectomy clips. Single calcification in spleen redemonstrated. IMPRESSION: Suboptimal study without CT evidence for acute pulmonary embolism. No new suspicious acut e pulmonary process.
[2020-12-06 16:13] VITALS: BP 160/76; PULSE 83
== END 2020-12-06 16:13 | disposition home or self-care (01) ==
LOC: EC 13:14
DX: R04.2 Hemoptysis (principal); J45.909 Unspecified asthma, uncomplicated; Z91.030 Bee allergy status; Z91.013 Allergy to seafood; Z91.09 Other allergy status, other than to drugs and biological substances
CPT/HCPCS: 96374; 96375; 99285; 36415; 80048; 85025; 71275; J1200; J2930; Q9967

== ENCOUNTER 2021-09-25 20:54 | Emergency (ER) | payer BC ==
[2021-09-25 23:03] VITALS: TEMP 97.7
[2021-09-25 23:34] VITALS: BP 154/73; PULSE 63; RESP 16
--- NOTE | 2021-09-25 23:42 | XR ---
EXAMINATION TYPE: XR chest 2V DATE OF EXAM: 09/25/2021 COMPARISON: 06/10/2019 HISTORY: Chest pain TECHNIQUE: FINDINGS: Heart and mediastinum are normal. Lungs are clear. Diaphragm is normal. Bony thorax appears normal. IMPRESSION: Normal chest. No change.
[2021-09-25 23:52] LABS: Basophils # (A) 0.1 k/uL (0-0.2); Basophils % (A) 1 %; Eosinophils # (A) 0.3 k/uL (0-0.7); Eosinophils % (A) 3 %; HCT 42.5 % (34.0-46.0); HGB 13.8 gm/dL (11.4-16.0); Lymphocytes % (A) 37 %; MCH 31.4 pg (25.0-35.0); MCHC 32.5 g/dL (31.0-37.0); MCV 96.8 fL (80.0-100.0); Mean Platelet Volume 7.6; Monocytes # (A) 0.5 k/uL (0-1.0); Monocytes % (A) 6 %; Neutrophils # (A) 4.1 k/uL (1.3-7.7); Neutrophils % (A) 50 %; Platelet Count 298 k/uL (150-450); RBC 4.39 m/uL (3.80-5.40); RDW 12.6 % (11.5-15.5); WBC 8.1 k/uL (3.8-10.6)
[2021-09-26 00:04] LABS: INR 0.9 (<1.2); Partial Thromboplastin Time 25.9 sec (22.0-30.0); Prothrombin Time 10.4 sec (9.0-12.0)
[2021-09-26 00:13] LABS: ALT 31 U/L (4-34); AST 30 U/L (14-36); African American GFR (CKD) >90 (>60 ml/min/1.73 sqM); Albumin 4.5 g/dL (3.5-5.0); Alkaline Phosphatase 76 U/L (38-126); Anion Gap 9 mmol/L; Blood Urea Nitrogen 18 mg/dL (7-17); Calcium 8.9 mg/dL (8.4-10.2); Carbon Dioxide 23 mmol/L (22-30); Chloride 105 mmol/L (98-107); Glucose 101 mg/dL (74-99); Non-African American GFR(CKD) 80 (>60 ml/min/1.73 sqM); Sodium 137 mmol/L (137-145); Total Bilirubin 0.5 mg/dL (0.2-1.3); Total Protein 7.8 g/dL (6.3-8.2)
== END 2021-09-26 01:10 | disposition left against medical advice (07) ==
LOC: EC 20:54
DX: Z53.21 Procedure and treatment not carried out due to patient leaving prior to being seen by health care provider (principal)
CPT/HCPCS: 36415; 71046; 80053; 83735; 84484; 85025; 85610; 85730; 99499

== ENCOUNTER → 2022-03-10 | Outpatient (CLI) | payer BC ==
--- NOTE | 2022-03-11 09:26 | MM ---
Reason for Exam: Follow-up at short interval from prior study. Last mammogram was performed 1 year(s) and 8 month(s) ago. Patient History: Menarche at age 11. First Full-Term at age 19. Hysterectomy at age 44. Hormonal Contraceptives for 2 months. 02/15/2007, Benign Core Biopsy on the right side. 02/15/2007, Benign Core Biopsy on the right side. 2003, Bilateral Implants. Maternal aunt had breast cancer. Niece had ovarian cancer, age 35. Risk Values: Mariya 5 year model risk: 1.7%. NCI Lifetime model risk: 12.8%. Tissue Density: The breast tissue is heterogeneously dense. This may lower the sensitivity of mammography. Findings: Analyzed By CAD. Nodules seen previously left breast is not redemonstrated. No masses or distortion. Benign calcifications. Bilateral breast implants are intact. Overall Assessment: Benign, BI-RAD 2 Management: Screening Mammogram of both breasts in 1 year. A clinical breast exam by your physician is recommended on an annual basis and results should be correlated with mammographic findings. This exam should not preclude additional follow-up of suspicious palpable abnormalities. Results were given to the patient verbally at the time of exam. Electronically signed and approved by: Reza Arnold M.D. Radiologis
== END | disposition home or self-care (01) ==
LOC: RADMAMWWP 14:37
PROVIDERS: ATTEND Family Medicine
DX: R92.8 Other abnormal and inconclusive findings on diagnostic imaging of breast (principal); Z80.3 Family history of malignant neoplasm of breast; Z98.82 Breast implant status; Z98.890 Other specified postprocedural states
CPT/HCPCS: 77066

== ENCOUNTER → 2023-10-27 | Outpatient (CLI) | payer BC ==
--- NOTE | 2023-10-28 11:49 | CT ---
EXAMINATION TYPE: CT abdomen pelvis w con CT DLP: 609 mGycm, Automated exposure control for dose reduction was used. DATE OF EXAM: 10/27/2023 4:20 PM COMPARISON: 10/04/2018 CLINICAL INDICATION:Female, 48 years old with history of R22.2 ABD WALL MASS; abdominal wall mass TECHNIQUE: Axial CT abdomen pelvis w con;Sagittal and coronal reformats were created on a separate w orkstation. Contrast used:100 mL of Isovue 300 with IV Contrast, (none if empty) Oral contrast used: with Oral Contrast (none if empty) FINDINGS: LOWER CHEST: Bilateral breast implants appear intact. ABDOMEN LIVER: Unremarkable GALLBLADDER AND BILE DUCTS: The gallbladder is surgically absent. PANCREAS: Unremarkable. SPLEEN: Calcified granuloma. ADRENAL GLANDS: Unremarkable. KIDNEYS AND URETERS: No evidence of hydronephrosis or renal calculus. The ureters are unremarkable. PELVIS BLADDER: Unremarkable REPRODUCTIVE: Unremarkable. ABDOMEN & PELVIS STOMACH AND BOWEL: No evidence of bowel obstruction. Small bowel feces in the terminal ileum. PERITONEUM/RETROPERITONEUM: No evidence of pneumoperitoneum or free fluid. VASCULATURE: No evidence of aortic aneurysm. MUSCULOSKELETAL: No acute osseous abnormalities LYMPH NODES: No gross evidence for lymphadenopathy. SOFT TISSUE/ABDOMINAL WALL: Anterior abdominal wall possible fluid collection measuring now measuring 63 x 23 x 36 mm previously 66 x 16 x 29 mm which is peripheral higher density and central lower dens ity. IMPRESSION: Superficial to the abdominal wall musculature is a fluid collection. Correlate with history of surger y. This is seen dating back to 2019.
== END | disposition home or self-care (01) ==
LOC: RADCTMAIN 15:20
PROVIDERS: ATTEND Surgery
DX: R22.2 Localized swelling, mass and lump, trunk (principal)
CPT/HCPCS: 74177; Q9967